=== PATIENT | female | born 1930 | race Caucasian/White ===

== ENCOUNTER 2017-02-01 09:15 | Inpatient (IN) ==
--- NOTE | 2017-02-01 09:54 | Emergency Department Note ---
Disposition Clinical Impression: Urinary retention Back pain Qualifiers: Back pain location: low back pain Chronicity: unspecified Back pain laterality : unspecified Sciatica presence: unspecified whether sciatica present Qualified Code(s): M54.5 - Low back pain Urinary tract infection Qualifiers: Urinary tract infection type: site unspecified Hematuria presence: with hematuria Qualified Code(s): N39.0 - Urinary tract infection, site not specified Disposition: Admitted As Inpatient Condition: Good Time of Disposition: 13:14 Back Pain HPI - General Chief Complaint: ED Back Pain/Injury Stated Complaint: back pain/leg pain Time Seen by Provider: 02/01/17 09:25 Source: patient, EMS Mode of arrival: EMS Limitations: no limitations Nursing Notes Reviewed: Yes Vital Signs Reviewed: Yes - History of Present Illness HPI Narrative: 86-year-old female history of hypertension, arthritis and osteoporosis presents to the ED via EMS with atraumatic back pain. Describes sharp pain in the right lower back some radiation to the right hip. Denies any fall or trauma. States is been ongoing for 6 days worse today. She was pushing a shelf this occurred initially. Standing and walking makes it worse. She does live by herself. She requires assistance holding onto things as she moves around. She reports she has a overactive bladder. Otherwise she denies any fever, leg weakness, fecal incontinence, or saddle anesthesia. History of cholecystectomy. No bowel pain or dysuria. She reports constipation every so often. She takes medications for hypertension but unsure of what medications. Her PCP is Dr. Dali Soto. On examination appears similar to a muscle spasm. She is pointing to the right lumbosacral paraspinal region. Will get a CT of the lumbar spine to evaluate for possible occult fracture. Patient is in agreement with this plan. Review of her past medical history on eCW she has a history of hypertension, arthritis, osteoporosis, lumbar compression fracture, IBS, peripheral neuropathy. - Related Data Home Medications Medication Instructions Recorded Confirmed Albuterol Neb [Proventil Neb] 2.5 mg IH QID 02/01/17 02/01/17 Aspirin 81 mg PO DAILY 02/01/17 02/01/17 Atenolol [Tenormin] 50 mg PO DAILY 02/01/17 02/01/17 Beclomethasone Diprop 80mcg [Qvar 1 puff IH BID 02/01/17 02/01/17 80 mcg] Ibandronate Sodium [Boniva] 150 mg PO QMONTH 02/01/17 02/01/17 Lisinopril [Zestril] 20 mg PO DAILY 02/01/17 02/01/17 diazePAM [Valium] 10 mg PO HS PRN 02/01/17 02/01/17 Allergies Allergy/AdvReac Type Severity Reaction Status Date / Time No Known Allergies Allergy Verified 02/01/17 09:20 All systems ED: reviewed and negative except as stated. Review of Systems: As Per HPI Constitutional: Denies: fever, chills Cardiovascular: Denies: chest pain Respiratory: Denies: dyspnea Gastrointestinal: Denies: abdominal pain, nausea, vomiting Genitourinary: Denies: urgency, dysuria Musculoskeletal: Reports: back pain, arthralgia. Denies: neck pain Integumentary: Denies: rash, abrasion Neurological: Denies: headache Past Medical History - Past Medical History Attestation: Yes The following information was validated with the patient. Source: patient Medical history: Reports: COPD, osteoporosis - Social History Smoking Status: Never smoker Alcohol use: Reports: none Drug use: Reports: none Physical Exam - General Limitations: no limitations General appearance: alert, in no apparent distress - Head Head exam: atraumatic, normocephalic, normal inspection - Chest Chest inspection: Present: normal inspection, symmetric chest wall rise - Respiratory Respiratory exam: Present: normal lung sounds bilaterally. Absent: respiratory distress, wheezes - Cardiovascular Cardiovascular exam: Present: regular rate, normal rhythm, normal heart sounds - Expanded Cardiovascular Exam Peripheral pulses: 2+: posterior tibialis (R), posterior tibialis (L), dorsalis pedis (R), dorsalis pedis (L) - Abdominal Exam Abdominal exam: Present: soft, tenderness, normal bowel sounds. Absent: Non- Tender, distention, guarding, rebound, rigidity, Robertson's sign, Rovsing's sign, tenderness at McBurney's Point, pulsatile mass Abdominal tenderness: Present: RUQ, RLQ, diffuse, mild - Extremities Exam Extremities exam: Present: normal inspection, full ROM, normal capillary refill. Absent: tenderness, pedal edema, calf tenderness - Expanded Lower Extremity Exam Gait: observed and limited by pain - Back Exam Back exam: Present: normal inspection, full ROM, muscle spasm (LUMBAR, RIGHT), paraspinal tenderness, sciatic notch tenderness (R). Absent: tenderness, CVA tenderness (R), CVA tenderness (L), straight leg raise (R), straight leg raise ( L) - Neurological Exam Neurological exam: Present: alert, oriented X3 - Skin Skin exam: Present: warm, dry, intact, normal color. Absent: rash Course - Reevaluation(s) Reevaluation #1: Patient had relief with [place]. CT of the lumbar spine shows no acute abnormality. There is some chronic degenerative changes with the old compression fracture of L2 through L5. Reportedly stable in appearance from prior in 2007. Bedside ultrasound was performed at the bladder which showed roughly 200 mL of fluid. Patient has attempted to void twice with very minimal urine output. Will get a follow-up MRI to evaluate for any spinal injury. Patient is in agreement with this plan. MR lumbar without contrast ordered. Lumbar Spine CT 02/01/17 09:49 IMPRESSION: 1. No acute osseous abnormality of the lumbar spine. 2. Chronic compression fractures of L2 through L5, stable in appearance from 2007. Inferior endplate fracture of T12, new since 2007, but also likely chronic. 3. Degenerative changes of the lumbar spine, resulting in a moderate L3/L4 spinal canal stenoses and moderate neural foraminal stenoses at L4/L5, and L5/S1. D/ / 02/01/2017 11:00:54 Francisco Crane MD / ara Interpreting Provider: Francisco Crane MD Time: 12:07 Reevaluation #2: Informed that MRI will be delayed several hours. Due to symptoms will admit to medicine for observation while awaiting MRI to evaluate for possible cauda equina and possible rehab placement. Impression is low back pain, chronic lumbar compression fracture, urinary retention. Patient is in agreement with this plan. Time: 12:12 Reevaluation #3: Patient denies any dysuria. Urinalysis appears contaminated however there is positive nitrite and leuk esterase. Will treat for UTI with Ceftriaxone. Initially hypertensive possibly more elevated due to acute pain. On recheck without intervention 160/109, reports poor control recently. Denies any chest pain at this time. Patient is stable for discharge to hospital floor. Time: 13:36 - Consultations Consultation #1: Spoke with on-call hospitalist nadia Bo to admit for low back pain, chronic compression lumbar fracture, urinary retention. No further orders at this time Time: 13:14 Vital Signs Temperature 98.3 F 02/01/17 09:17 Pulse Rate 77 02/01/17 09:17 Respiratory Rate 18 02/01/17 09:17 Blood Pressure 182/92 02/01/17 09:17 O2 Sat by Pulse Oximetry 95 02/01/17 09:17 Temperature 98.2 F 02/01/17 14:17 Pulse Rate 85 02/01/17 17:09 Respiratory Rate 18 02/01/17 15:49 Blood Pressure 170/90 02/01/17 17:09 O2 Sat by Pulse Oximetry 93 02/01/17 15:49 Oxygen Delivery Oxygen Delivery Room Air Back Pain/Injury - Medical Records Medical records reviewed: Yes I reviewed the patient's medical records. - Lab Data Result diagrams: 02/01/17 14:46 02/01/17 14:46 Lab Results 02/01/17 Range/Units 11:50 Urine Color Yellow (Yellow) Urine Clarity Turbid A (Clear) Urine pH 6.0 (5.0-8.0) pH Units Ur Specific [place] 1.018 (1.010-1.025) Urine Protein 30 H (Neg-Trace) mg/dL Urine Glucose (UA) Normal (Normal) mg/dL Urine Ketones Negative (Negative) mg/dL Urine Blood Moderate H (Negative) Urine Nitrite Positive A (Negative) Urine Bilirubin Negative (Negative) Urine Urobilinogen Normal (Normal) mg/dL Ur Leukocyte Esterase Large H (Negative) Urine Microscopic WBC TNTC H (0-3) per hpf Ur Squamous Epith Cells Many H (None-Few) per lpf Urine Bacteria Many H (None-Few) per hpf Ur Culture Indicated? YES A (NO)
[2017-02-01] MEDS ORDERED: *HR* HYDROcodone/Acet 5/325 mg TABLET PO ONE (09:55)
--- NOTE | 2017-02-01 10:03 | Emergency Department Note ---
START Narrative - START START: I examined this patient and my medical decision-making was reviewed with the Resident Physician. I agree with the documented findings, disposition and treatment plan as described except to the extent set forth below. 86-year-old female presents with lower back pain over the on the right side. Positive radiculopathy. We will do a CT scan of the lumbar spine to evaluate for any new cough fractures or any new compression fractures.
[2017-02-01 12:02] LABS: Bilirubin,Urine Negative (Negative); Blood,Urine Moderate (Negative); Clarity,Urine Turbid (Clear); Color,Urine Yellow (Yellow); Glucose,Urine (UA) Normal (Normal); Ketones,Urine Negative (Negative); Leukocyte Esterase,Urine Large (Negative); Nitrite,Urine Positive (Negative); Protein,Urine 30 mg/dL (Neg-Trace); Specific Gravity,Urine 1.018 (1.010-1.025); Urobilinogen,Urine Normal (Normal)
[2017-02-01 12:04] LABS: Bacteria,Urine Many per hpf (None-Few); Squamous Epithelial Cell,Urine Many per lpf (None-Few); WBC,Urine TNTC per hpf (0-3)
[2017-02-01] MEDS ORDERED: diazePAM 10 MG TABLET PO PRN (13:56)
[2017-02-01] MEDS ORDERED: NON-FORMULARY MEDICATION 1 EACH EACH (Ibandronate Sodium [Boniva] 150 MG) PO SCH (14:00)
[2017-02-01] MEDS ORDERED: hydrALAZINE 10 MG TABLET PO PRN (14:10)
[2017-02-01] MEDS ORDERED: Acetaminophen 325 MG TABLET PO PRN (14:24)
[2017-02-01] MEDS ORDERED: Ondansetron 4 MG/2 ML VIAL IVP PRN (14:24)
[2017-02-01] MEDS ORDERED: *HR* Morphine 2 MG/ML SYRINGE IVP PRN (14:24)
[2017-02-01] MEDS ORDERED: Naloxone 0.4 MG/ML INJ IVP PRN (14:24)
--- NOTE | 2017-02-01 14:48 | Internal Med History&Physical ---
<Wali Triana - Last Filed: 02/01/17 15:15> Date of Encounter: 02/01/17 Time of Encounter: 13:30 Assessment and Plan (1) Back pain Current visit: Yes Status: Acute Patient presents with severe back pain from moving a metal shelf six days ago when she experienced severe and stabbing pain in the back which has become progressively worse. She denies any fall, trauma, or syncopal episode. She states that the pain is mainly right-sided in the back and radiates down her leg when she attempts to stand or walk. CT of the spine today shows no acute osseous abnormalities lumbar spine, but there are compression fractures of L2- L5 which are stable in appearance from 2007. Inferior endplate fracture of T12 is new since 2007. There are also degenerative changes of the lumbar spine resulting in moderate L3/L4 spinal canal stenoses and moderate neural foraminal stenoses at L4/L5 as well as L5/S1. Consult to [facility] ordered with Dr. Summers. MRI of the spine ordered in the ED. Consult to ordered for possible placement of patient post-discharge. Patient placed as falls/safety precautions due to severe pain. Will administer stair-step pain medications for pain management. Qualifiers: Back pain location: low back pain Chronicity: unspecified Back pain laterality: unspecified Sciatica presence: unspecified whether sciatica present Qualified Code(s): M54.5 - Low back pain (2) Urinary tract infection Current visit: Yes Status: Acute Patient presents with initial U/A which is indicative for urine culture which was ordered in the ED. IV ceftriaxone administered in the ED and will be continued at 2,000 mg daily IVPB. Follow-up labs ordered to monitor patient's WBCs. Qualifiers: Urinary tract infection type: site unspecified Hematuria presence: with hematuria Qualified Code(s): N39.0 - Urinary tract infection, site not specified; R31.9 - Hematuria, unspecified (3) At high risk for falls Current visit: Yes Status: Acute Patient presents with acute risk for falls based on current severe back pain and difficulty in ambulating. Patient placed as falls precautions/up with assist /bed rest with bedside commode with assist only. (4) HTN (hypertension) Current visit: Yes Status: Acute Patient presents with history of chronic hypertension but is currently experiencing acute hypertension with BP of 162/122 most likely related to current pain. Patient reports she was unable to take any of her medications today due to severe pain with walking. Hydralazine IVP 10 mg every 6 ordered if systolic BP greater than 170 and/or diastolic BP greater than 100. We will continue patient's lisinopril and atenolol. Patient and vital signs to be monitored and patient placed on continuous telemetry. Qualifiers: Hypertension type: essential hypertension Qualified Code(s): I10 - Essential (primary) hypertension (5) COPD (chronic obstructive pulmonary disease) Current visit: Yes Status: Chronic Patient presents with history of chronic COPD. patient reports she has never smoked, but was exposed to secondhand smoke via her smoking. DuoNebs ordered every 6 and patient placed on supplemental O2 with SPO2 monitoring. Qualifiers: COPD type: unspecified COPD Qualified Code(s): J44.9 - Chronic obstructive pulmonary disease, unspecified (6) Arthritis Current visit: Yes Status: Chronic Patient presents with history of chronic arthritis. Will administer stair-step pain medication for pain management. (7) Osteoporosis Current visit: Yes Status: Chronic Patient presents with history of chronic osteoporosis. Patient's CT of the spine today shows chronic compression fractures and endplate fractures as well as degenerative changes of the lumbar spine. Will continue patient's Boniva. Qualifiers: Osteoporosis type: age-related Presence of current pathological fracture: with current pathological fracture Encounter type: initial encounter Qualified Code(s): M80.00XA - Age-related osteoporosis with current pathological fracture, unspecified site, initial encounter for fracture (8) DVT prophylaxis Current visit: Yes Status: Acute Patient placed on DVT prophylaxis due to current admission protocol and bedrest status. Heparin 5000 units SQ every 8 ordered. Internal Medicine - H&P: HPI Chief complaint: Severe Back Pain Admitted From: Emergency Dept Plans for Post Hospital Care: Home History of present illness: Mrs. Mitchell is a 86 year old female who presents from the ED with chief complaint of severe back pain. Patient states she was in the basement moving a metal shelf six days ago when she experienced severe and stabbing pain in the back which has become progressively worse. She denies any fall, trauma, or syncopal episode. She states that the pain is mainly right-sided in the back and radiates down her leg when she attempts to stand or walk. CT of the spine today shows no acute osseous abnormalities lumbar spine, but there are compression fractures of L2-L5 which are stable in appearance from 2008. Inferior endplate fracture of T12 is new since 2008. There are also degenerative changes of the lumbar spine resulting in moderate L3/L4 spinal canal stenoses and moderate neural foraminal stenoses at L4/L5 as well as L5/S1. Patient's initial UA was indicative of urine cultures and patient was started on IV ceftriaxone in the ED. Patient denies difficulty in urination except when she is constipated, which she says currently she has. Patient is at moderate risk for further morbidity will be placed as an inpatient consult [facility] placed as well as social work consult to explore possible placement for patient post discharge. Will consider PT/OT consult Dr. Summers's recommendations. The patient's current and severe back pain, she will be placed as falls precautions/ up with assist/bedrest with bedside commode with assist only. Patient's BP is currently elevated at 162/122 and hydralazine 10 mg Q6 PRN ordered for systolic BP >170 and/or diastolic BP >100. Patient to be monitored closely for pain and will receive stair-step pain medications for pain management. Time spent with patient >40 minutes. Past Med Surg Social Fam HX - Past Medical History Source: patient Medical history: COPD, osteoporosis - Past Surgical History Surgical History: cholecystectomy, other (Tubal ligation, Ovarian tumor removal) - Social History Smoking Status: Never smoker Alcohol use: none Drug use: none Current living situation: Home Activity Level: Independent ambulation, Uses cane/walker Recent Out of Country Travel Within the Last 8 Weeks: No Exposure or Possible Exposure to Illness During Travel: No - Family History Father Family Member Ethnicity: Non- Living Status: Age at : 77 Cause of : [place] Hx Family Cardiac Disorders: Yes ([place], HD, HTN, HLD) Mother Family Member Ethnicity: Non- Living Status: Cause of : Dementia-related complications Hx Family Endocrine Disorder: Yes (DM) Hx Family Neurologic Disorders: Yes (Dementia) Brother Family Member Ethnicity: Non- Living Status: Cause of : Cancer Hx Family Cancer: Yes Sister Family Member Ethnicity: Non- Living Status: Age at : 80 Cause of : Alzheimer's disease Hx Family Neurologic Disorders: Yes (Alzheimer's disease) Internal Medicine - H&P: Meds Albuterol Neb [Proventil Neb] 2.5 mg IH QID 02/01/17 [History] Aspirin 81 mg PO DAILY 02/01/17 [History] Atenolol [Tenormin] 50 mg PO DAILY 02/01/17 [History] Beclomethasone Diprop 80mcg [Qvar 80 mcg] 1 puff IH BID 02/01/17 [History] Ibandronate Sodium [Boniva] 150 mg PO QMONTH 02/01/17 [History] Lisinopril [Zestril] 20 mg PO DAILY 02/01/17 [History] diazePAM [Valium] 10 mg PO HS PRN 02/01/17 [History] Allergies No Known Allergies Allergy (Verified 02/01/17 09:20) All Systems PM: A 10-system review of systems was performed and is negative for pertinent findings except as documented above in the HPI. - Constitutional Constitutional: no chills, no fever(s), no night sweats - EENT Eyes: no change in vision, no discharge, no pain, no photophobia Ears: no ear discharge, no ear pain, no tinnitus Nose, mouth and throat: no dysphagia, no nasal discharge, no neck pain, no sore throat - Breasts Breasts: as per HPI - Cardiovascular Cardiovascular ROS IM: no chest pain, no diaphoresis, no dyspnea, no lightheadedness, no palpitations, no syncope - Respiratory Respiratory: as per HPI, dyspnea, no cough, no wheezing, no excessive phlegm production - Gastrointestinal Gastrointestinal: no abdominal pain, no diarrhea, no hematemesis, no hematochezia, no melena, no nausea, no vomiting - Genitourinary Genitourinary: no change in urinary stream, no dysuria, no flank pain, no hematuria Menstruation: as per HPI - Musculoskeletal Musculoskeletal ROS IM: as per HPI, back pain, limited range of motion, no numbness, no tingling - Integumentary Integumentary IM: no rash, no unusual bruising - Neurological Neurological ROS: no confusion, no convulsions, no focal weakness, no numbness, no tingling, no tremor(s) - Psychiatric Psychiatric: as per HPI - Endocrine Endocrine IM: as per HPI - Hematologic/Lymphatic Hematologic/Lymphatic: no easy bruising - Allergic/Immunologic Allergic/Immunologic: as per HPI - Constitutional Vitals: Temp Pulse Resp BP Pulse Ox 98.2 F 72 15 172/99 92 02/01/17 14:17 02/01/17 14:17 02/01/17 14:17 02/01/17 14:17 02/01/17 14:17 General appearance: Present: cooperative, mild distress, A&O X 3, pleasant, obese, answers questions appropriately - Head Head exam: Present: atraumatic, normocephalic - Eye Eye exam: Present: PERRL, conjuntiva pink, sclera anicteric Pupils: Present: PERRL - ENT ENT exam: Present: normal exam, normal external ear exam - Neck Neck exam general surgery: Present: normal inspection, supple, trachea midline. Absent: lymphadenopathy - Respiratory Respiratory exam: Present: CTAB. Absent: accessory muscle use, rales, rhonchi, wheezes - Cardiovascular Cardiovascular exam: Present: RRR, +S1, +S2. Absent: diastolic murmur, gallop, rubs, systolic murmur - GI/Abdominal GI/Abdominal exam: Present: normal bowel sounds, soft, no peritoneal signs. Absent: distended, tenderness - Rectal Rectal exam: Present: deferred - Additional comments: Gu exam deferred. - Extremities Exam Extremities exam: Present: warm, radial pulses palpable and symmetrical. Absent : calf tenderness, cyanotic, pedal edema - Back Exam Back exam: Present: CVA tenderness (R), vertebral tenderness - Neurological Exam Neurological exam: Present: CN II-XII intact, oriented X3, no focal deficits. Absent: pronater drift, facial droop, speech deficit - Psychiatric Psychiatric exam: Present: normal affect, normal mood - Skin Skin exam: Present: dry, intact Internal Med - H&P Results - Labs CBC & Chem 7: 02/01/17 14:46 02/01/17 14:46 - Diagnostic Studies Other Images Additional comments: Impressions Lumbar Spine CT 02/01/17 09:49 IMPRESSION: 1. No acute osseous abnormality of the lumbar spine. 2. Chronic compression fractures of L2 through L5, stable in appearance from 2007. Inferior endplate fracture of T12, new since 2007, but also likely chronic. 3. Degenerative changes of the lumbar spine, resulting in a moderate L3/L4 spinal canal stenoses and moderate neural foraminal stenoses at L4/L5, and L5/S1. D/ / 02/01/2017 11:00:54 Francisco Crane MD / ara Interpreting Provider: Francisco Crane MD <Tabatha Nails - Last Filed: 02/01/17 18:48> Date of Encounter: 02/01/17 Internal Medicine - H&P: HPI History of present illness: Ms. Mitchell is a 86 year old female All Systems PM: A 10-system review of systems was performed and is negative for pertinent findings except as documented above in the HPI. - Constitutional Vitals: Temp Pulse Resp BP Pulse Ox 98.2 F 85 18 170/90 93 02/01/17 14:17 02/01/17 17:09 02/01/17 15:49 02/01/17 17:09 02/01/17 15:49 Internal Med - H&P Results - Labs CBC & Chem 7: 02/01/17 14:46 02/01/17 14:46 Labs: Short CBC 02/01/17 Range/Units 14:46 WBC 8.6 (4.3-11.1) K/mcL Hgb 15.3 (11.5-15.4) g/dL Hct 46.0 H (35.3-44.9) % Plt Count 195 (140-400) K/mcL Neutrophils # 5.2 (1.6-8.9) K/mcL BMP 02/01/17 14:46 Sodium 140 Potassium 3.5 Chloride 106 Carbon Dioxide 27 BUN 13 Creatinine 0.88 Glucose 123 H Calcium 9.5 Liver Function 02/01/17 Range/Units 14:46 Total Bilirubin 0.6 (0.2-1.2) mg/dL AST 25 (5-34) Units/L ALT 17 (0-55) Units/L Alkaline Phosphatase 73 (38-126) Units/L Albumin 3.5 (3.5-5.0) g/dL - Attending Attestation I examined this patient and my medical decision-making was reviewed with the SHEAR TENDER. I agree with the documented findings, disposition and treatment plan as described .
[2017-02-01 14:54] LABS: Basophils % 0.3 %; Eosinophils # 0.4 K/mcL (0.0-0.6); Eosinophils % 4.4 %; Hemoglobin 15.3 g/dL (11.5-15.4); Immature Granulocytes % 0.7 % (0-4); Lymphocytes # 2.1 K/mcL (0.6-4.6); Lymphocytes % 24.8 %; Mean Corpuscular HGB Conc 33.3 g/dL (31.6-35.5); Mean Corpuscular Volume 90.2 fL (83.0-100.0); Mean Platelet Volume 9.8 fL (9.4-12.4); Monocytes # 0.8 K/mcL (0.0-1.3); Monocytes % 9.4 %; Neutrophils # 5.2 K/mcL (1.6-8.9); Platelet Count 195 K/mcL (140-400); Red Cell Distribution Width 13.2 % (11.5-14.5); Segmented Neutrophils % 60.4 %
[2017-02-01 15:11] LABS: Alanine Aminotransferase 17 Units/L (0-55); Albumin 3.5 g/dL (3.5-5.0); Albumin/Globulin Ratio 0.9 (1.1-2.2); Alkaline Phosphatase 73 Units/L (38-126); Aspartate Amino Transferase 25 Units/L (5-34); BUN/Creatinine Ratio 15 (6-26); Bilirubin,Total 0.6 mg/dL (0.2-1.2); Blood Urea Nitrogen 13 mg/dL (7-20); Calcium 9.5 mg/dL (8.6-10.8); Carbon Dioxide 27 mEq/L (19-29); Chloride 106 mEq/L (98-109); Globulin 3.7 g/dL (2.4-3.5); Glucose 123 mg/dL (70-99); Osmolality,Calculated 291 (280-300); Potassium 3.5 mEq/L (3.5-4.5); Sodium 140 mEq/L (136-145); Total Protein 7.2 g/dL (6.0-8.3); eGFR For African Americans > 60 (> 60); eGFR For Non-African Americans > 60 (> 60)
[2017-02-01] MEDS: *HR* Heparin 5,000 UNIT/ML VIAL SQ SCH ×2 (15:36→23:22)
[2017-02-01] MEDS: hydrALAZINE 10 MG TABLET PO PRN (15:36)
[2017-02-01] MEDS: Pantoprazole 40 MG VIAL IVP SCH (15:36)
[2017-02-01] MEDS: Ipratropium/Albuterol Neb 3 ML IH SCH ×2 (15:46→22:32)
[2017-02-01] MEDS ORDERED: Lisinopril 20 MG TABLET PO ONE (17:30)
--- NOTE | 2017-02-01 18:01 | Pain Management History & Phys ---
Date of Encounter: 02/01/17 Time of Encounter: 17:59 Assessment and Plan (1) Sacroiliitis Current Visit: Yes Status: Acute The assessment and plan as outlined above was discussed with the patient and/or family members who expressed understanding and agreement. All questions were answered. Recommend a short course of IV steroids (1 or two days at most). Oral opioids for pain control. I can then f/u with as an outpatient to discuss further management such as SI joint injection if needed. May also consider PT/OT eval while she is here. (2) Lumbar compression fracture Current Visit: Yes Status: Chronic The assessment and plan as outlined above was discussed with the patient and/or family members who expressed understanding and agreement. All questions were answered. CT reviewed. These are old. Kyphoplasty not indicated. These are not where her pain is actually located. History of Present Illness Chief complaint: Back pain HPI: Ms. Mitchell is a 86 year old female 6 days ago was moving a cart and felt sharp twinge in the right low back. "Like a pitchfork". Worse with walking. Relieved with rest, pain medicine. Reports no new weakness. Was unable to maintain ADLS. Brought in this morning via ED. CT scan shows old VCF. Past Med Surg Social Fam HX - Past Medical History Medical history: COPD, osteoporosis Psychiatric history: no psych history - Past Surgical History Surgical History: cholecystectomy, other (Tubal ligation, Ovarian tumor removal) - Social History Smoking Status: 2nd Hand Smoke Exposure Smokeless Tobacco Status: No Alcohol use: none Drug use: none Current living situation: Home - Independent Activity Level: Independent ambulation - Family History Mother History Unknown: Yes Father Living Status: Age at : 77 Cause of : [place] Brother Family Member Ethnicity: Non- Living Status: Cause of : Cancer Hx Family Cancer: Yes Sister Family Member Ethnicity: Non- Living Status: Age at : 80 Cause of : Alzheimer's disease Hx Family Neurologic Disorders: Yes (Alzheimer's disease) Medications and Allergies Albuterol Neb [Proventil Neb] 2.5 mg IH QID 02/01/17 [History] Aspirin 81 mg PO DAILY 02/01/17 [History] Atenolol [Tenormin] 50 mg PO DAILY 02/01/17 [History] Beclomethasone Diprop 80mcg [Qvar 80 mcg] 1 puff IH BID 02/01/17 [History] Ibandronate Sodium [Boniva] 150 mg PO QMONTH 02/01/17 [History] Lisinopril [Zestril] 20 mg PO DAILY 02/01/17 [History] diazePAM [Valium] 10 mg PO HS PRN 02/01/17 [History] Allergies No Known Allergies Allergy (Verified 02/01/17 09:20) Review of Systems - Constitutional Constitutional ROS IM: no photophobia, no phonophobia, no daytime sleepiness, no fever(s), no stops breathing during sleep - Cardiovascular Cardiovascular ROS: no chest pain, no leg edema, no lightheadedness - Respiratory Respiratory: no pain on inspiration, no pain with cough - Gastrointestinal Gastrointestinal: no abdominal pain, no constipation, no diarrhea, no heartburn - Genitourinary Genitourinary ROS: no difficulty urinating, no flank pain, no urinary hesitancy - Musculoskeletal Musculoskeletal ROS: as per HPI, abnormal gait - Integumentary Integumentary: no erythema, no lesions, no swelling - Neurological Neurological ROS: no abnormal gait, no behavioral changes, no focal weakness, no radicular pain - Psychiatric Psychiatric general: no anxiety, no confusion, no depression - Hematologic/Lymphatic Hematologic/Lymphatic pediatric: no easy bleeding, no easy bruising Physical Exam Initial Vital Signs Temp Pulse Resp BP Pulse Ox 98.3 F 77 18 182/92 95 02/01/17 09:17 02/01/17 09:17 02/01/17 09:17 02/01/17 09:17 02/01/17 09:17 - General physical appearance General physical appearance: awake & oriented, no distress, moderate pain - Eyes Eye exam: normal ocular movement - Neck trachea midline - Respiratory normal expansion, normal respiratory effort - Neurologic other (Moving all extremities equally. ) - Musculoskeletal Musculoskeletal: other (Pain over right SI joint. Dinesh sign positive right. ) - Psychiatric Psychiatric: oriented to time, oriented to person, oriented to place Results - Labs 02/01/17 14:46 02/01/17 14:46 Abnormal lab results RBC 5.10 M/mcL (3.82-4.97) H 02/01/17 14:46 Hct 46.0 % (35.3-44.9) H 02/01/17 14:46 Glucose 123 mg/dL (70-99) H 02/01/17 14:46 Globulin 3.7 g/dL (2.4-3.5) H 02/01/17 14:46 Albumin/Globulin Ratio 0.9 (1.1-2.2) L 02/01/17 14:46 Urine Clarity Turbid (Clear) A 02/01/17 11:50 Urine Protein 30 mg/dL (Neg-Trace) H 02/01/17 11:50 Urine Blood Moderate (Negative) H 02/01/17 11:50 Urine Nitrite Positive (Negative) A 02/01/17 11:50 Ur Leukocyte Esterase Large (Negative) H 02/01/17 11:50 Urine Microscopic WBC TNTC per hpf (0-3) H 02/01/17 11:50 Ur Squamous Epith Cells Many per lpf (None-Few) H 02/01/17 11:50 Urine Bacteria Many per hpf (None-Few) H 02/01/17 11:50 Ur Culture Indicated? YES (NO) A 02/01/17 11:50 Diabetes panel 02/01/17 Range/Units 14:46 Sodium 140 (136-145) mEq/L Potassium 3.5 (3.5-4.5) mEq/L Chloride 106 (98-109) mEq/L Carbon Dioxide 27 (19-29) mEq/L BUN 13 (7-20) mg/dL Creatinine 0.88 (0.57-1.11) mg/dL Glucose 123 H (70-99) mg/dL Calcium 9.5 (8.6-10.8) mg/dL AST 25 (5-34) Units/L ALT 17 (0-55) Units/L Alkaline Phosphatase 73 (38-126) Units/L Albumin 3.5 (3.5-5.0) g/dL Calcium panel 02/01/17 Range/Units 14:46 Calcium 9.5 (8.6-10.8) mg/dL Albumin 3.5 (3.5-5.0) g/dL Pituitary panel 02/01/17 Range/Units 14:46 Sodium 140 (136-145) mEq/L Potassium 3.5 (3.5-4.5) mEq/L Chloride 106 (98-109) mEq/L Carbon Dioxide 27 (19-29) mEq/L BUN 13 (7-20) mg/dL Creatinine 0.88 (0.57-1.11) mg/dL Glucose 123 H (70-99) mg/dL Calcium 9.5 (8.6-10.8) mg/dL Adrenal panel 02/01/17 Range/Units 14:46 Sodium 140 (136-145) mEq/L Potassium 3.5 (3.5-4.5) mEq/L Chloride 106 (98-109) mEq/L Carbon Dioxide 27 (19-29) mEq/L BUN 13 (7-20) mg/dL Creatinine 0.88 (0.57-1.11) mg/dL Glucose 123 H (70-99) mg/dL Calcium 9.5 (8.6-10.8) mg/dL Total Bilirubin 0.6 (0.2-1.2) mg/dL AST 25 (5-34) Units/L ALT 17 (0-55) Units/L Alkaline Phosphatase 73 (38-126) Units/L Albumin 3.5 (3.5-5.0) g/dL All other labs normal. - Imaging Additional studies: Reviewed CT scan - Old VCF. No acuity
[2017-02-01] MEDS: *HR* HYDROcodone/Acet 5/325 mg TABLET PO PRN ×2 (19:28→23:27)
[2017-02-01] MEDS: predniSONE 20 MG TABLET PO SCH (21:26)
[2017-02-01] MEDS: *HR* OxyCODONE/APAP 10/325 TABLET PO PRN (21:26)
[2017-02-01] MEDS: diazePAM 10 MG TABLET PO PRN (23:22)
[2017-02-02] MEDS: Ipratropium/Albuterol Neb 3 ML IH SCH ×4 (04:11→20:59)
[2017-02-02 07:31] LABS: Basophils % 0.3 %; Eosinophils % 0.1 %; Hematocrit 45.8 % (35.3-44.9); Hemoglobin 15.2 g/dL (11.5-15.4); Immature Granulocytes % 0.5 % (0-4); Lymphocytes # 1.1 K/mcL (0.6-4.6); Lymphocytes % 13.5 %; Mean Corpuscular HGB Conc 33.2 g/dL (31.6-35.5); Mean Corpuscular Hemoglobin 30.3 pg (28.0-33.3); Mean Corpuscular Volume 91.4 fL (83.0-100.0); Mean Platelet Volume 10.2 fL (9.4-12.4); Monocytes # 0.3 K/mcL (0.0-1.3); Monocytes % 4.4 %; Neutrophils # 6.3 K/mcL (1.6-8.9); Platelet Count 200 K/mcL (140-400); Red Blood Count 5.01 M/mcL (3.82-4.97); Red Cell Distribution Width 13.5 % (11.5-14.5); Segmented Neutrophils % 81.2 %
[2017-02-02 07:54] LABS: BUN/Creatinine Ratio 15 (6-26); Blood Urea Nitrogen 13 mg/dL (7-20); Calcium 9.6 mg/dL (8.6-10.8); Carbon Dioxide 26 mEq/L (19-29); Chloride 108 mEq/L (98-109); Chol/HDL Ratio 5.3 (0-4.9); Cholesterol 175 mg/dL (< 200); Glucose 142 mg/dL (70-99); HDL Cholesterol 33 mg/dL (40-59); LDL Cholesterol,Calculated 123 mg/dL (0-99); Magnesium 2.2 mg/dL (1.6-2.6); Osmolality,Calculated 297 (280-300); Potassium 4.4 mEq/L (3.5-4.5); Sodium 142 mEq/L (136-145); Triglycerides 96 mg/dL (< 150); eGFR For African Americans > 60 (> 60); eGFR For Non-African Americans > 60 (> 60)
[2017-02-02] MEDS: Lisinopril 20 MG TABLET PO SCH (08:30)
[2017-02-02] MEDS: Aspirin 81 MG TAB.CHEW PO SCH (08:30)
[2017-02-02] MEDS: predniSONE 20 MG TABLET PO SCH (08:30)
[2017-02-02] MEDS: Pantoprazole 40 MG VIAL IVP SCH (08:31)
[2017-02-02] MEDS: *HR* Heparin 5,000 UNIT/ML VIAL SQ SCH ×3 (08:31→23:19)
[2017-02-02] MEDS: *HR* OxyCODONE/APAP 10/325 TABLET PO PRN ×2 (08:31→17:30)
--- NOTE | 2017-02-02 10:13 | Internal Med Progress Note ---
<Ashwin Hollingsworth R - Last Filed: 02/02/17 12:54> Date of Encounter: 02/02/17 Time of Encounter: 09:13 - Assessment and plan (1) Sacroiliitis Current Visit: Yes Status: Acute Assessment and plan: Reports localized symptoms now over Right SI joint Continue stair step pain management - pain controlled now - 2 [place] and 1 Percocet yesterday, 1 Percocet today 2 days of prednisone 20mg PT/OT evaluation SW consult to evaluation d/c possibilities (2) Lumbar compression fracture Current Visit: Yes Status: Chronic Assessment and plan: Acute/subacute T12. Stable compression fractures L2-L5 No kyphoplasty recommended Pain control. Continue Boniva upon d/c Qualifiers: Encounter type: initial encounter Lumbar vertebra fracture level: L1 Fracture type: closed Qualified Code(s): S32.010A - Wedge compression fracture of first lumbar vertebra, initial encounter for closed fracture (3) Urinary tract infection Current Visit: Yes Status: Acute Assessment and plan: On Ceftriaxone. Urine culture pending - preliminary results show gram negative rods. Afebrile, no elevated WBC. Qualifiers: Urinary tract infection type: site unspecified Hematuria presence: with hematuria Qualified Code(s): N39.0 - Urinary tract infection, site not specified (4) At high risk for falls Current Visit: Yes Status: Acute Assessment and plan: Fall precautions (5) HTN (hypertension) Current Visit: Yes Status: Acute Assessment and plan: Normotensive now - continue atenolol, lisinopril. Hydralazine prn Acutely elevated on admission Qualifiers: Hypertension type: essential hypertension Qualified Code(s): I10 - Essential (primary) hypertension (6) COPD (chronic obstructive pulmonary disease) Current Visit: Yes Status: Chronic Assessment and plan: Lungs clear on exam. [place] q6h Qualifiers: COPD type: unspecified COPD Qualified Code(s): J44.9 - Chronic obstructive pulmonary disease, unspecified (7) DVT prophylaxis Current Visit: Yes Status: Acute Assessment and plan: Subcutaneous heparin - Subjective Interval history: Patient reports her pain is well controlled (2/10) and is located on the right lower back. She points near the right SI joint and describes it as if "someone were stabbing" her there. Worse with movement and just a dull ache now while resting. Numbness and tingling are present only at night. She denies other complaints, denies dizziness, light-headedness, chest pain, dyspnea, cough, N/V/ D, dysuria or leg edema. - Constitutional Vitals: Temp Pulse Resp BP Pulse Ox 97.6 F 74 16 132/87 95 02/02/17 07:27 02/02/17 07:27 02/02/17 07:27 02/02/17 07:27 02/02/17 07:27 General appearance: Present: cooperative, mild distress, A&O X 3, pleasant, obese, answers questions appropriately - Head Head exam: Present: atraumatic, normocephalic - Eye Eye exam: Present: sclera anicteric - ENT ENT exam: Present: mucous membranes moist - Respiratory Respiratory exam: Present: CTAB. Absent: rales, rhonchi, wheezes - Cardiovascular Cardiovascular exam: Present: RRR, +S1, +S2 - GI/Abdominal GI/Abdominal exam: Present: normal bowel sounds, soft. Absent: distended, rigid , tenderness - Extremities Exam Extremities exam: Present: warm, radial pulses palpable and symmetrical. Absent : calf tenderness, pedal edema, tenderness - Neurological Exam Neurological exam: Present: alert, CN II-XII intact, oriented X3, no focal deficits Internal Medicine: Result - Labs CBC & Chem 7: 02/02/17 07:08 02/02/17 07:08 Labs: Short CBC 02/01/17 02/02/17 Range/Units 14:46 07:08 WBC 8.6 7.8 (4.3-11.1) K/mcL Hgb 15.3 15.2 (11.5-15.4) g/dL Hct 46.0 H 45.8 H (35.3-44.9) % Plt Count 195 200 (140-400) K/mcL Neutrophils # 5.2 6.3 (1.6-8.9) K/mcL BMP 02/01/17 02/02/17 14:46 07:08 Sodium 140 142 Potassium 3.5 4.4 Chloride 106 108 Carbon Dioxide 27 26 BUN 13 13 Creatinine 0.88 0.88 Glucose 123 H 142 H Calcium 9.5 9.6 Liver Function 02/01/17 Range/Units 14:46 Total Bilirubin 0.6 (0.2-1.2) mg/dL AST 25 (5-34) Units/L ALT 17 (0-55) Units/L Alkaline Phosphatase 73 (38-126) Units/L Albumin 3.5 (3.5-5.0) g/dL Consult Discharge Plan - Plan Referrals: Dali Soto DO [Primary Care Provider] - 02/07/17 1:30 pm Son Romano DO [Partnered Physician] - 02/15/17 3:30 pm <Surinder Camarillo - Last Filed: 02/02/17 18:21> Date of Encounter: 02/02/17 - Assessment and plan (1) Sacroiliitis Current Visit: Yes Status: Acute (2) Back pain Current Visit: Yes Status: Acute Qualifiers: Back pain location: low back pain Chronicity: unspecified Back pain laterality: unspecified Sciatica presence: unspecified whether sciatica present Qualified Code(s): M54.5 - Low back pain (3) HTN (hypertension) Current Visit: Yes Status: Acute Qualifiers: Hypertension type: essential hypertension Qualified Code(s): I10 - Essential (primary) hypertension (4) Urinary tract infection Current Visit: Yes Status: Acute Qualifiers: Urinary tract infection type: acute cystitis Hematuria presence: with hematuria Qualified Code(s): N30.01 - Acute cystitis with hematuria (5) Urinary retention Current Visit: Yes Status: Acute (6) COPD (chronic obstructive pulmonary disease) Current Visit: Yes Status: Chronic Qualifiers: COPD type: unspecified COPD Qualified Code(s): J44.9 - Chronic obstructive pulmonary disease, unspecified (7) Osteoporosis Current Visit: Yes Status: Chronic Qualifiers: Osteoporosis type: age-related Presence of current pathological fracture: with current pathological fracture Encounter type: subsequent encounter Fracture healing: with routine healing Qualified Code(s): M80.00XD - Age- related osteoporosis with current pathological fracture, unspecified site, subsequent encounter for fracture with routine healing (8) Arthritis Current Visit: Yes Status: Chronic - Constitutional Vitals: Temp Pulse Resp BP Pulse Ox 98.0 F 76 16 148/82 95 02/02/17 12:41 02/02/17 12:41 02/02/17 16:15 02/02/17 12:41 02/02/17 16:15 Internal Medicine: Result - Labs CBC & Chem 7: 02/02/17 07:08 02/02/17 07:08 Labs: Short CBC 02/02/17 Range/Units 07:08 WBC 7.8 (4.3-11.1) K/mcL Hgb 15.2 (11.5-15.4) g/dL Hct 45.8 H (35.3-44.9) % Plt Count 200 (140-400) K/mcL Neutrophils # 6.3 (1.6-8.9) K/mcL BMP 02/02/17 07:08 Sodium 142 Potassium 4.4 Chloride 108 Carbon Dioxide 26 BUN 13 Creatinine 0.88 Glucose 142 H Calcium 9.6 - Attending Attestation I examined this patient and my medical decision-making was reviewed with the Resident Physician on 02/02/17. I agree with the documented findings, disposition and treatment plan as described except to the extent set forth below. Ms. Mitchell is currenty admitted for acute low back pain/sacroilitis. She remains moderate risk due to persistent pain and concern for vertebral fracture. Ms Mitchell is up and walking with therapy. Pain is fairly controlled though still present. MRI done this AM. Awaiting spine surgery eval. No fever or chills. Urine with gram neg [place]. Exam Alert. Comfortable Mucus membranes moist Heart reg No wheeze No edema I/P 1. Sacroilitis 2. Intractable back pain Further diagnoses and plan as above.
[2017-02-02] MEDS: *HR* HYDROcodone/Acet 5/325 mg TABLET PO PRN (12:30)
--- NOTE | 2017-02-02 15:29 | Electrocardiograph Report ---
[address] [place] [address] Test Date: 2017-02-01 Pat Name: Jing Mitchell Department: 113 Room: 3B12 Gender: F Supervisor Beet End: DORIE : 1930 Requested By: Wali Triana Order Number: [id number] Reading MD: Aneudy Aviles Measurements Intervals [place] Rate: 68 P: 62 NE: 167 QRS: -7 QRSD: 107 T: 39 QT: 426 QTc: 443 Interpretive Statements SINUS RHYTHM WITH OCCASIONAL VENTRICULAR PREMATURE COMPLEXES Electronically Signed On 02-02-2017 15:27:55 EDT by Aneudy Aviles
[2017-02-02] MEDS: diazePAM 10 MG TABLET PO PRN (22:26)
[2017-02-03] MEDS: *HR* OxyCODONE/APAP 10/325 TABLET PO PRN ×2 (02:52→16:55)
[2017-02-03] MEDS: Ipratropium/Albuterol Neb 3 ML IH SCH ×4 (04:49→20:54)
[2017-02-03 07:36] LABS: BUN/Creatinine Ratio 20 (6-26); Blood Urea Nitrogen 17 mg/dL (7-20); Calcium 9.5 mg/dL (8.6-10.8); Carbon Dioxide 26 mEq/L (19-29); Chloride 108 mEq/L (98-109); Glucose 111 mg/dL (70-99); Osmolality,Calculated 296 (280-300); Potassium 3.7 mEq/L (3.5-4.5); Sodium 142 mEq/L (136-145); eGFR For African Americans > 60 (> 60); eGFR For Non-African Americans > 60 (> 60)
[2017-02-03 08:09] LABS: Hematocrit 43.1 % (35.3-44.9); Hemoglobin 14.4 g/dL (11.5-15.4); Mean Corpuscular HGB Conc 33.4 g/dL (31.6-35.5); Mean Corpuscular Hemoglobin 31.3 pg (28.0-33.3); Mean Corpuscular Volume 93.7 fL (83.0-100.0); Mean Platelet Volume 11.4 fL (9.4-12.4); Platelet Count 197 K/mcL (140-400); Red Cell Distribution Width 13.9 % (11.5-14.5)
[2017-02-03] MEDS: predniSONE 20 MG TABLET PO SCH (10:09)
[2017-02-03] MEDS: Aspirin 81 MG TAB.CHEW PO SCH (10:09)
[2017-02-03] MEDS: *HR* HYDROcodone/Acet 5/325 mg TABLET PO PRN ×2 (10:09→20:07)
[2017-02-03] MEDS: Lisinopril 20 MG TABLET PO SCH (10:09)
[2017-02-03] MEDS: *HR* Heparin 5,000 UNIT/ML VIAL SQ SCH ×3 (10:10→23:59)
[2017-02-03] MEDS: Pantoprazole 40 MG VIAL IVP SCH (10:10)
--- NOTE | 2017-02-03 10:18 | Internal Med Progress Note ---
<Ashwin Hollingsworth Marci - Last Filed: 02/03/17 12:33> Date of Encounter: 02/03/17 Time of Encounter: 09:42 - Assessment and plan (1) Sacroiliitis Current Visit: Yes Status: Acute Assessment and plan: Reports localized symptoms now over Right SI joint. No pain along spine. Continue stair step pain management - pain controlled now - asking for [place] and Percocet when available 3 days of prednisone 20mg Continue PT/OT SW consult - need for swing bed at home (2) Lumbar compression fracture Current Visit: Yes Status: Chronic Assessment and plan: Acute/subacute T12. Stable compression fractures L2-L5 No kyphoplasty recommended Pain control. Continue Boniva upon d/c Ortho consult - appreciate recommendations Qualifiers: Encounter type: initial encounter Lumbar vertebra fracture level: L1 Fracture type: closed Qualified Code(s): S32.010A - Wedge compression fracture of first lumbar vertebra, initial encounter for closed fracture (3) Urinary tract infection Current Visit: Yes Status: Acute Assessment and plan: Day 3 of Ceftriaxone. Urine culture - Klebsiella - uncomplicated. Can stop antibiotics after her dose today. Afebrile, WBC 13.7. Qualifiers: Urinary tract infection type: acute cystitis Hematuria presence: with hematuria Qualified Code(s): N30.01 - Acute cystitis with hematuria (4) At high risk for falls Current Visit: Yes Status: Acute Assessment and plan: Fall precautions (5) HTN (hypertension) Current Visit: Yes Status: Acute Assessment and plan: Normotensive now - continue atenolol, lisinopril. Hydralazine prn Acutely elevated on admission Qualifiers: Hypertension type: essential hypertension Qualified Code(s): I10 - Essential (primary) hypertension (6) COPD (chronic obstructive pulmonary disease) Current Visit: Yes Status: Chronic Assessment and plan: Lungs clear on exam, diminished breath sounds. [place] q6h Reports feeling on phlegm in her throat without sputum production Qualifiers: COPD type: unspecified COPD Qualified Code(s): J44.9 - Chronic obstructive pulmonary disease, unspecified (7) DVT prophylaxis Current Visit: Yes Status: Acute Assessment and plan: Subcutaneous heparin - Subjective Interval history: Patient reports her pain is well controlled and is located on the right lower back. She points near the right SI joint and describes it as if "someone were stabbing" her there. Worse with movement and just a dull ache now while resting. Numbness and tingling are present only at night in bilateral lower extremities. Reports a feeling of phlegm in her throat that she is unable to cough up starting after a breathing treatment last night. She also had some difficulty swallowing meat with her evening meal. Denies dizziness, light- headedness, chest pain, dyspnea, cough, N/V/D, dysuria or leg edema. - Constitutional Vitals: Temp Pulse Resp BP Pulse Ox 97.9 F 79 16 151/83 97 02/03/17 07:29 02/03/17 07:29 02/03/17 07:29 02/03/17 08:12 02/03/17 07:29 General appearance: Present: cooperative, mild distress, A&O X 3, pleasant, obese, answers questions appropriately - Head Head exam: Present: atraumatic, normocephalic - Eye Eye exam: Present: EOMI, sclera anicteric - ENT ENT exam: Present: mucous membranes moist - Respiratory Respiratory exam: Present: decreased breath sounds. Absent: rales, rhonchi, wheezes - Cardiovascular Cardiovascular exam: Present: RRR, +S1, +S2. Absent: diastolic murmur, systolic murmur - GI/Abdominal GI/Abdominal exam: Present: normal bowel sounds, soft. Absent: distended, rigid , tenderness - Neurological Exam Neurological exam: Present: alert, CN II-XII intact, oriented X3, no focal deficits Internal Medicine: Result - Labs CBC & Chem 7: 02/03/17 06:54 02/03/17 06:54 Labs: Short CBC 02/03/17 Range/Units 06:54 WBC 13.7 H D (4.3-11.1) K/mcL Hgb 14.4 (11.5-15.4) g/dL Hct 43.1 (35.3-44.9) % Plt Count 197 (140-400) K/mcL BMP 02/03/17 06:54 Sodium 142 Potassium 3.7 Chloride 108 Carbon Dioxide 26 BUN 17 Creatinine 0.85 Glucose 111 H Calcium 9.5 Consult Discharge Plan - Plan Referrals: Dali Soto DO [Primary Care Provider] - 02/07/17 1:30 pm Son Romano DO [Partnered Physician] - 02/15/17 3:30 pm <Sruinder Camarillo - Last Filed: 02/03/17 18:50> Date of Encounter: 02/03/17 - Assessment and plan (1) Neuropathy involving both lower extremities Current Visit: Yes Status: Chronic (2) Sacroiliitis Current Visit: Yes Status: Acute (3) Back pain Current Visit: Yes Status: Acute Qualifiers: Back pain location: low back pain Chronicity: unspecified Back pain laterality: unspecified Sciatica presence: unspecified whether sciatica present Qualified Code(s): M54.5 - Low back pain (4) HTN (hypertension) Current Visit: Yes Status: Acute Qualifiers: Hypertension type: essential hypertension Qualified Code(s): I10 - Essential (primary) hypertension (5) Urinary tract infection Current Visit: Yes Status: Acute Qualifiers: Urinary tract infection type: acute cystitis Hematuria presence: with hematuria Qualified Code(s): N30.01 - Acute cystitis with hematuria (6) Urinary retention Current Visit: Yes Status: Acute (7) COPD (chronic obstructive pulmonary disease) Current Visit: Yes Status: Chronic Qualifiers: COPD type: unspecified COPD Qualified Code(s): J44.9 - Chronic obstructive pulmonary disease, unspecified (8) Osteoporosis Current Visit: Yes Status: Chronic Qualifiers: Osteoporosis type: age-related Presence of current pathological fracture: with current pathological fracture Encounter type: subsequent encounter Fracture healing: with routine healing Qualified Code(s): M80.00XD - Age- related osteoporosis with current pathological fracture, unspecified site, subsequent encounter for fracture with routine healing (9) Arthritis Current Visit: Yes Status: Chronic - Constitutional Vitals: Temp Pulse Resp BP Pulse Ox 98.4 F 80 16 157/79 94 02/03/17 14:50 02/03/17 14:50 02/03/17 14:50 02/03/17 14:50 02/03/17 14:50 Internal Medicine: Result - Labs CBC & Chem 7: 02/03/17 06:54 02/03/17 06:54 Labs: Short CBC 02/03/17 Range/Units 06:54 WBC 13.7 H D (4.3-11.1) K/mcL Hgb 14.4 (11.5-15.4) g/dL Hct 43.1 (35.3-44.9) % Plt Count 197 (140-400) K/mcL BMP 02/03/17 06:54 Sodium 142 Potassium 3.7 Chloride 108 Carbon Dioxide 26 BUN 17 Creatinine 0.85 Glucose 111 H Calcium 9.5 - Attending Attestation I examined this patient and my medical decision-making was reviewed with the Resident Physician on 02/03/17. I agree with the documented findings, disposition and treatment plan as described except to the extent set forth below. Ms Mitchell is currently admitted for intractable back pain and vertebral fractures. She is moderate risk due to potential for worsening neuro status. Ms. Mitchell is having a lot of chest congestion that she cannot cough out. Wants lozenge. Complaining of neuropathy pain. Back pain tolerable. Exam Alert. Comfortable Mucus membranes dry Heart reg Some upper airway rhonchi Abd soft No edema I/P 1. Sacroilitis 2. Chest congestion 3. Peripheral neuropathy Further diagnoses and plan as above.
--- NOTE | 2017-02-03 14:44 | Electrocardiograph Report ---
[place] [address] Test Date: 2017-02-03 Pat Name: Jing Mitchell Department: 113 Room: 3B12 Gender: F Registered Medical Assistant: : 1930 Requested By: Sam Iraheta Order Number: [id number] Reading MD: Gwen Aviles Measurements Intervals [place] Rate: 67 P: 52 [place]: 159 QRS: -9 QRSD: 100 T: 16 QT: 386 QTc: 402 Interpretive Statements SINUS RHYTHM WITH OCCASIONAL VENTRICULAR PREMATURE COMPLEXES Electronically Signed On 02-03-2017 14:43:06 EDT by Gwen Aviles
[2017-02-03] MEDS ORDERED: Benzonatate 100 MG CAPSULE PO PRN (19:39)
[2017-02-03] MEDS: Gabapentin 100 MG CAPSULE PO SCH (20:06)
[2017-02-03] MEDS: diazePAM 10 MG TABLET PO PRN (23:58)
[2017-02-04] MEDS: Ipratropium/Albuterol Neb 3 ML IH SCH ×4 (03:21→21:52)
[2017-02-04 04:27] LABS: Hematocrit 42.3 % (35.3-44.9); Hemoglobin 13.9 g/dL (11.5-15.4); Mean Corpuscular HGB Conc 32.9 g/dL (31.6-35.5); Mean Corpuscular Hemoglobin 30.6 pg (28.0-33.3); Mean Corpuscular Volume 93.2 fL (83.0-100.0); Mean Platelet Volume 10.9 fL (9.4-12.4); Platelet Count 205 K/mcL (140-400); Red Blood Count 4.54 M/mcL (3.82-4.97)
[2017-02-04] MEDS: *HR* OxyCODONE/APAP 10/325 TABLET PO PRN ×4 (05:31→20:16)
[2017-02-04] MEDS: predniSONE 20 MG TABLET PO SCH (09:40)
[2017-02-04] MEDS: Lisinopril 20 MG TABLET PO SCH (09:40)
[2017-02-04] MEDS: Pantoprazole 40 MG VIAL IVP SCH (09:41)
[2017-02-04] MEDS: *HR* Heparin 5,000 UNIT/ML VIAL SQ SCH ×3 (09:41→23:19)
[2017-02-04] MEDS: Aspirin 81 MG TAB.CHEW PO SCH (09:41)
--- NOTE | 2017-02-04 12:39 | Internal Med Progress Note ---
<Ashwin Hollingsworth Marci - Last Filed: 02/04/17 16:15> Date of Encounter: 02/04/17 Time of Encounter: 12:34 - Assessment and plan (1) Sacroiliitis Current Visit: Yes Status: Acute Assessment and plan: Reports localized symptoms over Right SI joint. No pain along spine or radiating pain. Continue stair step pain management - pain controlled now - asking for Bruni and Percocet when available 3 days of prednisone 20mg Continue PT/OT SW consult - planning on d/c to rehab for continued PT pending prior authorization (2) Lumbar compression fracture Current Visit: Yes Status: Chronic Assessment and plan: Acute/subacute T12. Stable compression fractures L2-L5 No kyphoplasty recommended Pain control. Continue Boniva upon d/c Ortho consult - appreciate recommendations Qualifiers: Encounter type: initial encounter Lumbar vertebra fracture level: L1 Fracture type: closed Qualified Code(s): S32.010A - Wedge compression fracture of first lumbar vertebra, initial encounter for closed fracture (3) Urinary tract infection Current Visit: Yes Status: Acute Assessment and plan: 3 days of antibiotics completed - sopped today. Urine culture - Klebsiella - uncomplicated. Qualifiers: Urinary tract infection type: acute cystitis Hematuria presence: with hematuria Qualified Code(s): N30.01 - Acute cystitis with hematuria (4) At high risk for falls Current Visit: Yes Status: Acute Assessment and plan: Fall precautions (5) HTN (hypertension) Current Visit: Yes Status: Acute Assessment and plan: Normotensive now - continue atenolol, lisinopril. Hydralazine prn Acutely elevated on admission Qualifiers: Hypertension type: essential hypertension Qualified Code(s): I10 - Essential (primary) hypertension (6) COPD (chronic obstructive pulmonary disease) Current Visit: Yes Status: Chronic Assessment and plan: Lungs clear on exam, diminished breath sounds. Duonebs q6h Sensation of phlegm is much improved with mucinex Qualifiers: COPD type: unspecified COPD Qualified Code(s): J44.9 - Chronic obstructive pulmonary disease, unspecified (7) DVT prophylaxis Current Visit: Yes Status: Acute Assessment and plan: Subcutaneous heparin - Subjective Interval history: Patient reports her pain is controlled and is located on the right lower back. Her pain is localized to the right SI joint. Worse with movement and just a dull ache now while resting. Numbness and tingling are present only at night in bilateral lower extremities. The sensation of phlegm in her throat is improved with mucinex. Reports no difficulty swallowing anymore and ate a good dinner last night and breakfast this morning. Denies dizziness, light-headedness, chest pain, dyspnea, cough, N/V/D, dysuria or leg edema. - Constitutional Vitals: Temp Pulse Resp BP Pulse Ox 98.3 F 69 16 148/68 94 02/04/17 11:43 02/04/17 11:43 02/04/17 11:43 02/04/17 11:43 02/04/17 11:43 General appearance: Present: cooperative, A&O X 3, pleasant, no acute distress, answers questions appropriately - Head Head exam: Present: atraumatic, normocephalic - Eye Eye exam: Present: sclera anicteric - ENT ENT exam: Present: mucous membranes moist - Respiratory Respiratory exam: Present: CTAB. Absent: rales, rhonchi, wheezes - Cardiovascular Cardiovascular exam: Present: RRR, +S1, +S2. Absent: diastolic murmur, systolic murmur - GI/Abdominal GI/Abdominal exam: Present: normal bowel sounds, soft. Absent: distended, rigid , tenderness - Extremities Exam Extremities exam: Present: warm. Absent: joint swelling, pedal edema, tenderness - Neurological Exam Neurological exam: Present: alert, CN II-XII intact, oriented X3, no focal deficits Internal Medicine: Result - Labs CBC & Chem 7: 02/04/17 03:59 02/03/17 06:54 Labs: Short CBC 02/04/17 Range/Units 03:59 WBC 13.6 H (4.3-11.1) K/mcL Hgb 13.9 (11.5-15.4) g/dL Hct 42.3 (35.3-44.9) % Plt Count 205 (140-400) K/mcL Consult Discharge Plan - Plan Referrals: Dali Soto DO [Primary Care Provider] - 02/07/17 1:30 pm Son Romano DO [Partnered Physician] - 02/15/17 3:30 pm <Surinder Camarillo - Last Filed: 02/04/17 21:05> Date of Encounter: 02/04/17 - Assessment and plan (1) Neuropathy involving both lower extremities Current Visit: Yes Status: Chronic (2) Sacroiliitis Current Visit: Yes Status: Acute (3) Back pain Current Visit: Yes Status: Acute Qualifiers: Back pain location: low back pain Chronicity: unspecified Back pain laterality: unspecified Sciatica presence: unspecified whether sciatica present Qualified Code(s): M54.5 - Low back pain (4) HTN (hypertension) Current Visit: Yes Status: Acute Qualifiers: Hypertension type: essential hypertension Qualified Code(s): I10 - Essential (primary) hypertension (5) Urinary tract infection Current Visit: Yes Status: Acute Qualifiers: Urinary tract infection type: acute cystitis Hematuria presence: with hematuria Qualified Code(s): N30.01 - Acute cystitis with hematuria (6) Urinary retention Current Visit: Yes Status: Acute (7) COPD (chronic obstructive pulmonary disease) Current Visit: Yes Status: Chronic Qualifiers: COPD type: unspecified COPD Qualified Code(s): J44.9 - Chronic obstructive pulmonary disease, unspecified (8) Osteoporosis Current Visit: Yes Status: Chronic Qualifiers: Osteoporosis type: age-related Presence of current pathological fracture: with current pathological fracture Encounter type: subsequent encounter Fracture healing: with routine healing Qualified Code(s): M80.00XD - Age- related osteoporosis with current pathological fracture, unspecified site, subsequent encounter for fracture with routine healing (9) Arthritis Current Visit: Yes Status: Chronic - Constitutional Vitals: Temp Pulse Resp BP Pulse Ox 97.7 F 65 16 135/81 95 02/04/17 18:40 02/04/17 18:40 02/04/17 18:40 02/04/17 18:40 02/04/17 18:40 Internal Medicine: Result - Labs CBC & Chem 7: 02/04/17 03:59 02/03/17 06:54 Labs: Short CBC 02/04/17 Range/Units 03:59 WBC 13.6 H (4.3-11.1) K/mcL Hgb 13.9 (11.5-15.4) g/dL Hct 42.3 (35.3-44.9) % Plt Count 205 (140-400) K/mcL - Attending Attestation I examined this patient and my medical decision-making was reviewed with the Resident Physician on 02/04/17. I agree with the documented findings, disposition and treatment plan as described except to the extent set forth below. Ms. Mitchell is currently admitted for intractable back pain and UTI. She is awaiting SNF. She remains moderate risk due to persistent pain and medications. Ms Mitchell is resting comfortably this AM. No new issues. No fever or chills. Pain is about the same today. Exam Alert. Comfortable in bed Mucus membranes moist Heart reg No wheeze Abd soft I/P 1. Sacroilitis 2. UTI Further diagnoses and plan as above.
[2017-02-04] MEDS: hydrALAZINE 10 MG TABLET PO PRN (14:43)
[2017-02-04] MEDS: Gabapentin 100 MG CAPSULE PO SCH (20:16)
[2017-02-04] MEDS: diazePAM 10 MG TABLET PO PRN (23:18)
[2017-02-04] MEDS: *HR* HYDROcodone/Acet 5/325 mg TABLET PO PRN (23:18)
[2017-02-05] MEDS: *HR* OxyCODONE/APAP 10/325 TABLET PO PRN ×4 (03:01→22:54)
[2017-02-05] MEDS: Ipratropium/Albuterol Neb 3 ML IH SCH ×4 (03:33→21:01)
[2017-02-05] MEDS: *HR* Heparin 5,000 UNIT/ML VIAL SQ SCH ×3 (09:02→22:55)
[2017-02-05] MEDS: Lisinopril 20 MG TABLET PO SCH ×2 (09:03→20:55)
[2017-02-05] MEDS: Aspirin 81 MG TAB.CHEW PO SCH (09:04)
[2017-02-05] MEDS: predniSONE 20 MG TABLET PO SCH (09:04)
[2017-02-05] MEDS: Pantoprazole 40 MG VIAL IVP SCH (09:06)
--- NOTE | 2017-02-05 12:24 | Internal Med Progress Note ---
Date of Encounter: 02/05/17 Time of Encounter: 11:30 - Assessment and plan (1) Oral thrush Current Visit: Yes Status: Suspected Assessment and plan: Nystatin swish and swallow added. (2) Neuropathy involving both lower extremities Current Visit: Yes Status: Chronic Assessment and plan: Currently on low dose Neurontin. Will increase slightly tonight and can be adjusted more when gets to SNF. (3) Sacroiliitis Current Visit: Yes Status: Acute Assessment and plan: Pain control. Steroids for 3 days. Awaiting approval for d/c to SNF tomorrow. (4) Back pain Current Visit: Yes Status: Acute Assessment and plan: Pain control. Qualifiers: Back pain location: low back pain Chronicity: unspecified Back pain laterality: unspecified Sciatica presence: unspecified whether sciatica present Qualified Code(s): M54.5 - Low back pain (5) HTN (hypertension) Current Visit: Yes Status: Acute Assessment and plan: Uncontrolled today. Possible worsened by steroids. Will adjust meds. Qualifiers: Hypertension type: essential hypertension Qualified Code(s): I10 - Essential (primary) hypertension (6) Urinary tract infection Current Visit: Yes Status: Acute Assessment and plan: Abx stopped today. Asymptomatic now. Qualifiers: Urinary tract infection type: acute cystitis Hematuria presence: with hematuria Qualified Code(s): N30.01 - Acute cystitis with hematuria (7) Urinary retention Current Visit: Yes Status: Resolved (8) COPD (chronic obstructive pulmonary disease) Current Visit: Yes Status: Chronic Assessment and plan: Improved with Mucinex. Continue as is for now. Qualifiers: COPD type: chronic bronchitis Chronic bronchitis type: simple Qualified Code(s): J41.0 - Simple chronic bronchitis (9) Osteoporosis Current Visit: Yes Status: Chronic Assessment and plan: Planning for SNF for rehab. Qualifiers: Osteoporosis type: age-related Presence of current pathological fracture: with current pathological fracture Encounter type: subsequent encounter Fracture healing: with routine healing Qualified Code(s): M80.00XD - Age- related osteoporosis with current pathological fracture, unspecified site, subsequent encounter for fracture with routine healing (10) Arthritis Current Visit: Yes Status: Chronic Assessment and plan: Chronic problem (11) Leukocytosis Current Visit: Yes Status: Acute Assessment and plan: Related to Prednisone. Qualifiers: Leukocytosis type: other Qualified Code(s): D72.828 - Other elevated white blood cell count - Subjective Interval history: Ms Mitchell is currently admitted for intractable back pain and UTI. She remains moderate to high risk due to potential for worsening infection and neurologic symptoms. She has issues with blood pressure and new complaint of mouth lesions today. Ms. Mitchell has been getting up in the room. She still has a lot of pain. She has developed some sores and pain in her mouth. No fever or chills. No GI issues. Awaiting d/c to SNF when approved. - Constitutional Vitals: Temp Pulse Resp BP Pulse Ox 97.7 F 57 17 189/85 94 02/05/17 11:29 02/05/17 11:29 02/05/17 11:29 02/05/17 11:29 02/05/17 11:29 General appearance: Present: cooperative, A&O X 3, pleasant, answers questions appropriately - Head Head exam: Present: normocephalic - Eye Eye exam: Present: EOMI, conjuntiva pink - ENT ENT exam: Present: mucous membranes moist Additional comments: Erythema of tongue noted. Small lesions on posterior pharynx noted. - Respiratory Respiratory exam: Present: CTAB. Absent: rales, rhonchi, wheezes - Cardiovascular Cardiovascular exam: Present: RRR. Absent: tachycardia - GI/Abdominal GI/Abdominal exam: Present: soft. Absent: tenderness - Extremities Exam Extremities exam: Present: warm. Absent: tenderness - Neurological Exam Neurological exam: Present: alert, oriented X3, no focal deficits - Psychiatric Psychiatric exam: Present: normal affect, normal mood - Skin Skin exam: Present: warm. Absent: rash Internal Medicine: Result - Labs CBC & Chem 7: 02/04/17 03:59 02/03/17 06:54 Consult Discharge Plan - Plan Referrals: Dali Soto DO [Primary Care Provider] - 02/07/17 1:30 pm oSn Romano DO [Partnered Physician] - 02/15/17 3:30 pm
[2017-02-05] MEDS: Nystatin SUSP 5 ML UD.LIQ PO SCH ×3 (16:16→20:56)
[2017-02-05] MEDS: Gabapentin 100 MG CAPSULE PO SCH (20:56)
[2017-02-05] MEDS: diazePAM 10 MG TABLET PO PRN (22:55)
[2017-02-06] MEDS: *HR* HYDROcodone/Acet 5/325 mg TABLET PO PRN ×2 (02:00→06:38)
[2017-02-06] MEDS: Ipratropium/Albuterol Neb 3 ML IH SCH ×4 (03:01→22:19)
[2017-02-06 05:11] LABS: Alanine Aminotransferase 322 Units/L (0-55); Albumin 3.3 g/dL (3.5-5.0); Albumin/Globulin Ratio 0.9 (1.1-2.2); Alkaline Phosphatase 158 Units/L (38-126); Aspartate Amino Transferase 160 Units/L (5-34); BUN/Creatinine Ratio 20 (6-26); Bilirubin,Total 0.4 mg/dL (0.2-1.2); Blood Urea Nitrogen 17 mg/dL (7-20); Calcium 9.7 mg/dL (8.6-10.8); Carbon Dioxide 30 mEq/L (19-29); Chloride 105 mEq/L (98-109); Globulin 3.7 g/dL (2.4-3.5); Glucose 98 mg/dL (70-99); Magnesium 2.3 mg/dL (1.6-2.6); Osmolality,Calculated 296 (280-300); Potassium 4.2 mEq/L (3.5-4.5); Sodium 142 mEq/L (136-145); eGFR For African Americans > 60 (> 60); eGFR For Non-African Americans > 60 (> 60)
[2017-02-06 05:46] LABS: Hematocrit 45.7 % (35.3-44.9); Hemoglobin 15.1 g/dL (11.5-15.4); Mean Corpuscular Hemoglobin 31.2 pg (28.0-33.3); Mean Corpuscular Volume 94.4 fL (83.0-100.0); Mean Platelet Volume 11.6 fL (9.4-12.4); Platelet Count 227 K/mcL (140-400); Red Blood Count 4.84 M/mcL (3.82-4.97); Red Cell Distribution Width 13.8 % (11.5-14.5)
[2017-02-06] MEDS: hydrALAZINE 10 MG TABLET PO PRN (06:38)
[2017-02-06] MEDS: Aspirin 81 MG TAB.CHEW PO SCH (08:12)
[2017-02-06] MEDS: Lisinopril 20 MG TABLET PO SCH ×2 (08:12→20:18)
[2017-02-06] MEDS: *HR* OxyCODONE/APAP 10/325 TABLET PO PRN (08:13)
[2017-02-06] MEDS: *HR* Heparin 5,000 UNIT/ML VIAL SQ SCH ×3 (08:13→23:47)
[2017-02-06] MEDS: Nystatin SUSP 5 ML UD.LIQ PO SCH ×4 (09:40→20:19)
--- NOTE | 2017-02-06 10:54 | Discharge Summary ---
<Ashwin Hollingsworth R - Last Filed: 02/06/17 14:11> Date of Encounter: 02/06/17 Time of Encounter: 10:44 - Discharge Diagnosis (1) Sacroiliitis Priority: Primary Status: Acute (2) Lumbar compression fracture Priority: Secondary Status: Chronic Qualifiers: Encounter type: initial encounter Lumbar vertebra fracture level: L1 Fracture type: closed Qualified Code(s): S32.010A - Wedge compression fracture of first lumbar vertebra, initial encounter for closed fracture (3) Urinary tract infection Priority: Secondary Status: Acute Qualifiers: Urinary tract infection type: acute cystitis Hematuria presence: with hematuria Qualified Code(s): N30.01 - Acute cystitis with hematuria (4) At high risk for falls Priority: Secondary Status: Acute (5) HTN (hypertension) Priority: Secondary Status: Acute Qualifiers: Hypertension type: essential hypertension Qualified Code(s): I10 - Essential (primary) hypertension (6) COPD (chronic obstructive pulmonary disease) Priority: Secondary Status: Chronic Qualifiers: COPD type: chronic bronchitis Chronic bronchitis type: simple Qualified Code(s): J41.0 - Simple chronic bronchitis (7) DVT prophylaxis Priority: Secondary Status: Acute - Discharge Medications Prescriptions: OxyCODONE Immed Rel [Roxicodone 5 MG] 10 mg PO Q6HR PRN #10 tab PRN Reason: Severe Pain Docusate [Colace] 100 mg PO BID PRN #30 PRN Reason: Constipation Gabapentin [Neurontin] 200 mg PO HS #10 Lidocaine Patch [Lidoderm 5% patch] 1 each TP DAILY #5 patch Home Medications: Albuterol Neb [Proventil Neb] 2.5 mg IH QID 02/01/17 [History] Aspirin 81 mg PO DAILY 02/01/17 [History] Atenolol [Tenormin] 50 mg PO DAILY 02/01/17 [History] Beclomethasone Diprop 80mcg [QVAR 80 mcg] 1 puff IH BID 02/01/17 [History] Ibandronate Sodium [Boniva] 150 mg PO QMONTH 02/01/17 [History] Lisinopril [Zestril] 20 mg PO DAILY 02/01/17 [History] diazePAM [Valium] 10 mg PO HS PRN 02/01/17 [History] Docusate [Colace] 100 mg PO BID PRN #30 02/06/17 [Rx] Gabapentin [Neurontin] 200 mg PO HS #10 02/06/17 [Rx] Lidocaine Patch [Lidoderm 5% patch] 1 each TP DAILY #5 patch 02/06/17 [Rx] OxyCODONE Immed Rel [Roxicodone 5 MG] 10 mg PO Q6HR PRN #10 tab 02/06/17 [Rx] Allergies/Adverse Reactions: Allergies No Known Allergies Allergy (Verified 02/01/17 09:20) Procedures/tests Complete & Pending: Procedures Performed prior 72 hours Category Date Time Status EKG [ECG 12 lead ECG] [ECG] Stat Y 02/03/17 12:17 Completed Date of admission: 02/01/17 14:42 Primary care physician: Prateek Willard Consults: 02/01/17 20:06 Consult to Occupational Therapy [CONS] Routine Comment: Evaluate, develop and implement POC Reason for Consult: Patient has hx of chronic compression fractures and severe back pain causing problems with ambulation. 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 Consult to Physical Therapy [CONS] Routine Comment: Evaluate, develop and implement POC Reason for Consult: Patient has hx of chronic compression fractures and severe back pain causing problems with ambulation. 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 Discharging clinician: Ashwin Hollingsworth Anticipated date of discharge: 02/06/17 - Patient Status Disposition: Transfer Inpatient Rehab Fac Condition: Good Functional capacity at discharge: uses cane/walker Overall status at discharge: patient is progressing back to baseline - Discharge Instructions Follow Up With: Son Romano DO [Partnered Physician] - 02/15/17 3:30 pm Additional Instructions: Continue to work with physical therapy to increase strength Increase activity as directed by physical therapy recommendations Obtain repeat lab work in one week to monitor LFT's Follow-up with Dr. Romano for pain management - Diet and Activity Activity: as per physical therapy Diet: advance to your usual diet Interval History: Patient seen and examined. Reports pain of her Right low back with movements, well controlled otherwise. Denies light-headedness, chest pain, dyspnea, cough, N/V/D, dysuria, or leg pain/swelling. Hospital course: Ms. Mitchell is a 86 year old female with PMH of COPD and osteoporosis with chief complaint of progressively worsening low back pain after moving a shelf a home 6 days prior. Initially she presented with radiating pain down her right leg, but then the pain became localized over the right SI joint. MRI of spine showed acute/subacute fracture of T12 (new since 2008 previous study) and stable compression fractures of L2-L5. She was evaluated by pain management and there was no kyphoplasty indicated at this time because of the age of the fractures. She received a short course of steroids and PO oxycodone for pain control. She also was treated with 3 days of ceftriaxone for a UTI. She is to follow-up as an out-patient with pain management for a possible SI joint injection. Upon discharge she is to continue PT at a rehab facility. She will need repeat lab work for LFT's as they were elevated during her stay. I suspect this is likely transient and secondary to pain medication. Will decrease her pain medicine and discharge on oxycodone alone. - Time Spent with Patient Total time spent providing and/or coordinating discharge services: - Constitutional Vitals: Temp Pulse Resp BP Pulse Ox 97.7 F 86 18 154/84 94 02/06/17 06:52 02/06/17 09:28 02/06/17 06:52 02/06/17 09:28 02/06/17 06:52 General appearance: Present: cooperative, A&O X 3, pleasant, answers questions appropriately - Head Head exam: Present: atraumatic, normocephalic - ENT ENT exam: Present: mucous membranes moist - Respiratory Respiratory exam: Present: CTAB. Absent: rales, rhonchi, wheezes - Cardiovascular Cardiovascular exam: Present: RRR, +S1, +S2. Absent: diastolic murmur, systolic murmur - GI/Abdominal GI/Abdominal exam: Present: normal bowel sounds, soft. Absent: distended, rigid , tenderness, no peritoneal signs - Extremities Exam Extremities exam: Present: warm, radial pulses palpable and symmetrical. Absent : joint swelling, tenderness - Neurological Exam Neurological exam: Present: alert, CN II-XII intact, oriented X3, no focal deficits <Surinder Camarillo - Last Filed: 02/06/17 19:12> Date of Encounter: 02/06/17 - Discharge Diagnosis (1) Sacroiliitis Status: Acute (2) Back pain Priority: Primary Status: Acute Qualifiers: Back pain location: low back pain Chronicity: unspecified Back pain laterality: unspecified Sciatica presence: unspecified whether sciatica present Qualified Code(s): M54.5 - Low back pain (3) Oral thrush Priority: Secondary Status: Suspected (4) Neuropathy involving both lower extremities Priority: Secondary Status: Chronic (5) HTN (hypertension) Status: Acute Qualifiers: Hypertension type: essential hypertension Qualified Code(s): I10 - Essential (primary) hypertension (6) Urinary tract infection Status: Acute Qualifiers: Urinary tract infection type: acute cystitis Hematuria presence: with hematuria Qualified Code(s): N30.01 - Acute cystitis with hematuria (7) Urinary retention Priority: Secondary Status: Resolved (8) COPD (chronic obstructive pulmonary disease) Status: Chronic Qualifiers: COPD type: chronic bronchitis Chronic bronchitis type: simple Qualified Code(s): J41.0 - Simple chronic bronchitis (9) Osteoporosis Priority: Secondary Status: Chronic Qualifiers: Osteoporosis type: age-related Presence of current pathological fracture: with current pathological fracture Encounter type: subsequent encounter Fracture healing: with routine healing Qualified Code(s): M80.00XD - Age- related osteoporosis with current pathological fracture, unspecified site, subsequent encounter for fracture with routine healing (10) Arthritis Priority: Secondary Status: Chronic (11) Leukocytosis Priority: Secondary Status: Resolved Qualifiers: Leukocytosis type: other Qualified Code(s): D72.828 - Other elevated white blood cell count (12) Transaminitis Priority: Secondary Status: Acute Date of admission: 02/01/17 14:42 Primary care physician: Prateek Willard Consults: 02/01/17 20:06 Consult to Occupational Therapy [CONS] Routine Comment: Evaluate, develop and implement POC Reason for Consult: Patient has hx of chronic compression fractures and severe back pain causing problems with ambulation. 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 Consult to Physical Therapy [CONS] Routine Comment: Evaluate, develop and implement POC Reason for Consult: Patient has hx of chronic compression fractures and severe back pain causing problems with ambulation. 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 Hospital course: Ms. Mitchell is a 86 year old female - Time Spent with Patient Total time spent providing and/or coordinating discharge services: 40min - Constitutional Vitals: Temp Pulse Resp BP Pulse Ox 97.8 F 107 16 169/94 95 02/06/17 18:27 02/06/17 18:27 02/06/17 18:27 02/06/17 18:27 02/06/17 18:27 - Attending Attestation I examined this patient and my medical decision-making was reviewed with the Resident Physician on 02/06/17. I agree with the documented findings, disposition and treatment plan as described except to the extent set forth below. Ms. Mitchell was admitted for intractable back pain. She was seen by pain management who felt was sacroilitis. She is afebrile and vitals stable. She will be discharged to SNF. Exam Alert. Comfortable in chair. Heart reg No wheeze. Abd soft Plan D/C to SNF when available. Recheck liver enzymes- ? due to pain meds.
[2017-02-06] MEDS: *HR* OxyCODONE Immed Rel 5 MG TABLET PO PRN ×2 (17:48→23:46)
[2017-02-06] MEDS: Gabapentin 100 MG CAPSULE PO SCH (20:18)
[2017-02-06] MEDS: diazePAM 10 MG TABLET PO PRN (20:19)
[2017-02-07] MEDS: Ipratropium/Albuterol Neb 3 ML IH SCH ×2 (03:28→07:37)
[2017-02-07 04:52] LABS: Hematocrit 48.2 % (35.3-44.9); Hemoglobin 15.6 g/dL (11.5-15.4); Mean Corpuscular HGB Conc 32.4 g/dL (31.6-35.5); Mean Corpuscular Hemoglobin 30.1 pg (28.0-33.3); Mean Corpuscular Volume 93.1 fL (83.0-100.0); Mean Platelet Volume 10.4 fL (9.4-12.4); Platelet Count 263 K/mcL (140-400); Red Blood Count 5.18 M/mcL (3.82-4.97); Red Cell Distribution Width 13.9 % (11.5-14.5)
[2017-02-07 05:00] LABS: Albumin 3.4 g/dL (3.5-5.0); Albumin/Globulin Ratio 0.9 (1.1-2.2); Bilirubin,Direct 0.3 mg/dL (0.0-0.5); Bilirubin,Indirect 0.3 mg/dL (0.0-1.2); Bilirubin,Total 0.6 mg/dL (0.2-1.2); Globulin 3.8 g/dL (2.4-3.5); Total Protein 7.2 g/dL (6.0-8.3)
[2017-02-07 06:55] VITALS: BP 163/75
[2017-02-07] MEDS: *HR* Heparin 5,000 UNIT/ML VIAL SQ SCH (07:45)
[2017-02-07] MEDS: Nystatin SUSP 5 ML UD.LIQ PO SCH ×2 (07:45→13:52)
[2017-02-07] MEDS: Aspirin 81 MG TAB.CHEW PO SCH (07:46)
[2017-02-07] MEDS: Lisinopril 20 MG TABLET PO SCH (07:46)
--- NOTE | 2017-02-07 08:25 | Internal Med Progress Note ---
<DarrickAshwin Marci - Last Filed: 02/07/17 08:23> Date of Encounter: 02/07/17 Time of Encounter: 08:23 - Assessment and plan (1) Sacroiliitis Current Visit: Yes Status: Acute Assessment and plan: Reports localized symptoms over Right SI joint. No pain along spine or radiating pain. Continue stair step pain management - pain controlled now - oxycodone Continue PT/OT SW consult - planning on d/c to rehab for continued PT pending prior authorization. (2) Lumbar compression fracture Current Visit: Yes Status: Chronic Assessment and plan: Acute/subacute T12. Stable compression fractures L2-L5 No kyphoplasty recommended Pain control. 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 This is helping her night time neuropathy (4) Oral thrush Current Visit: Yes Status: Suspected Assessment and plan: Nystatin swish and swallow. (5) Transaminitis Current Visit: Yes Status: Acute Assessment and plan: Likely secondary to pain medication - will decrease dose and recheck (6) Urinary tract infection Current Visit: Yes Status: Acute Assessment and plan: 3 days of antibiotics completed - sopped today. Urine culture - Klebsiella - uncomplicated. Qualifiers: Urinary tract infection type: acute cystitis Hematuria presence: with hematuria Qualified Code(s): N30.01 - Acute cystitis with hematuria (7) At high risk for falls Current Visit: Yes Status: Acute Assessment and plan: Fall precautions (8) HTN (hypertension) Current Visit: Yes Status: Acute Assessment and plan: Normotensive now - continue atenolol, lisinopril. Hydralazine prn Acutely elevated on admission Qualifiers: Hypertension type: essential hypertension Qualified Code(s): I10 - Essential (primary) hypertension (9) COPD (chronic obstructive pulmonary disease) Current Visit: Yes Status: Chronic Assessment and plan: Lungs clear on exam, diminished breath sounds. Duonebs q6h Sensation of phlegm is much improved with mucinex Qualifiers: COPD type: chronic bronchitis Chronic bronchitis type: simple Qualified Code(s): J41.0 - Simple chronic bronchitis (10) DVT prophylaxis Current Visit: Yes Status: Acute Assessment and plan: Subcutaneous heparin - Subjective Interval history: Patient reports her pain is controlled and is located on the right lower back. Her pain is localized to the right SI joint. Worse with movement and just a dull ache now while resting. Numbness and tingling at night are improving in bilateral lower extremities. Denies dizziness, light-headedness, chest pain, dyspnea, cough, N/V/D, dysuria or leg edema. - Constitutional Vitals: Temp Pulse Resp BP Pulse Ox 98.1 F 63 18 163/75 91 02/07/17 06:54 02/07/17 06:54 02/07/17 06:54 02/07/17 06:54 02/07/17 06:54 General appearance: Present: cooperative, A&O X 3, pleasant, answers questions appropriately - Head Head exam: Present: atraumatic, normocephalic - Respiratory Respiratory exam: Present: CTAB. Absent: rales, rhonchi, wheezes - Cardiovascular Cardiovascular exam: Present: RRR, +S1, +S2. Absent: diastolic murmur, systolic murmur - GI/Abdominal GI/Abdominal exam: Present: normal bowel sounds, soft. Absent: firm, rigid, tenderness - Neurological Exam Neurological exam: Present: alert, CN II-XII intact, oriented X3, no focal deficits Internal Medicine: Result - Labs CBC & Chem 7: 02/07/17 04:17 02/06/17 04:02 Labs: Short CBC 02/07/17 Range/Units 04:17 WBC 11.5 H (4.3-11.1) K/mcL Hgb 15.6 H (11.5-15.4) g/dL Hct 48.2 H (35.3-44.9) % Plt Count 263 (140-400) K/mcL Liver Function 02/07/17 Range/Units 04:17 Total Bilirubin 0.6 (0.2-1.2) mg/dL Direct Bilirubin 0.3 (0.0-0.5) mg/dL AST 160 H (5-34) Units/L ALT 283 H (0-55) Units/L Alkaline Phosphatase 228 H (38-126) Units/L Albumin 3.4 L (3.5-5.0) g/dL Consult Discharge Plan - Plan Additional Instructions: Continue to work with physical therapy to increase strength Increase activity as directed by physical therapy recommendations Obtain repeat lab work in one week to monitor LFT's Follow-up with Dr. Romano for pain management Referrals: Son Romano DO [Partnered Physician] - 02/15/17 3:30 pm Prescriptions: OxyCODONE Immed Rel [Roxicodone 5 MG] 10 mg PO Q6HR PRN #10 tab PRN Reason: Severe Pain Docusate [Colace] 100 mg PO BID PRN #30 PRN Reason: Constipation Gabapentin [Neurontin] 200 mg PO HS #10 Lidocaine Patch [Lidoderm 5% patch] 1 each TP DAILY #5 patch <Yosef Cool H - Last Filed: 02/07/17 13:39> Date of Encounter: 02/07/17 - Constitutional Vitals: Temp Pulse Resp BP Pulse Ox 98.1 F 63 18 163/75 91 02/07/17 06:54 02/07/17 06:54 02/07/17 06:54 02/07/17 06:54 02/07/17 06:54 Internal Medicine: Result - Labs CBC & Chem 7: 02/07/17 04:17 02/07/17 08:32 Labs: Short CBC 02/07/17 Range/Units 04:17 WBC 11.5 H (4.3-11.1) K/mcL Hgb 15.6 H (11.5-15.4) g/dL Hct 48.2 H (35.3-44.9) % Plt Count 263 (140-400) K/mcL BMP 02/07/17 08:32 Sodium 140 Potassium 4.1 Chloride 103 Carbon Dioxide 27 BUN 16 Creatinine 0.84 Glucose 105 H Calcium 9.9 Liver Function 02/07/17 02/07/17 Range/Units 04:17 08:32 Total Bilirubin 0.6 0.5 (0.2-1.2) mg/dL Direct Bilirubin 0.3 (0.0-0.5) mg/dL AST 160 H 123 H (5-34) Units/L ALT 283 H 270 H (0-55) Units/L Alkaline Phosphatase 228 H 226 H (38-126) Units/L Albumin 3.4 L 3.3 L (3.5-5.0) g/dL - Attending Attestation stable to be discharged I examined this patient and my medical decision-making was reviewed with the Resident Physician. I agree with the documented findings, disposition and treatment plan as described except to the extent set forth below.
[2017-02-07 09:01] LABS: Alanine Aminotransferase 270 Units/L (0-55); Albumin 3.3 g/dL (3.5-5.0); Albumin/Globulin Ratio 0.8 (1.1-2.2); Alkaline Phosphatase 226 Units/L (38-126); Aspartate Amino Transferase 123 Units/L (5-34); BUN/Creatinine Ratio 19 (6-26); Bilirubin,Total 0.5 mg/dL (0.2-1.2); Blood Urea Nitrogen 16 mg/dL (7-20); Calcium 9.9 mg/dL (8.6-10.8); Carbon Dioxide 27 mEq/L (19-29); Chloride 103 mEq/L (98-109); Globulin 4.2 g/dL (2.4-3.5); Glucose 105 mg/dL (70-99); Osmolality,Calculated 292 (280-300); Potassium 4.1 mEq/L (3.5-4.5); Sodium 140 mEq/L (136-145); Total Protein 7.5 g/dL (6.0-8.3); eGFR For African Americans > 60 (> 60); eGFR For Non-African Americans > 60 (> 60)
--- NOTE | 2017-02-07 13:39 | Physician Discharge Referral ---
<Ashwin Hollingsworth R - Last Filed: 02/07/17 13:37> [facility] Referral Info Transfer To: [facility] Provider in Charge after Transfer: PCP, Other ([facility]) Institutional Level of Care: Skilled - Diagnosis (1) Sacroiliitis Priority: Primary Status: Acute (2) Lumbar compression fracture Priority: Secondary Status: Chronic (3) Neuropathy involving both lower extremities Priority: Secondary Status: Chronic (4) Oral thrush Priority: Secondary Status: Suspected (5) Transaminitis Priority: Secondary Status: Acute (6) Urinary tract infection Priority: Secondary Status: Acute (7) At high risk for falls Priority: Secondary Status: Acute (8) HTN (hypertension) Priority: Secondary Status: Acute (9) COPD (chronic obstructive pulmonary disease) Priority: Secondary Status: Chronic (10) DVT prophylaxis Priority: Secondary Status: Acute - Transfer Medications Prescriptions: OxyCODONE Immed Rel [Roxicodone 5 MG] 10 mg PO Q6HR PRN #10 tab PRN Reason: Severe Pain Docusate [Colace] 100 mg PO BID PRN #30 PRN Reason: Constipation Gabapentin [Neurontin] 200 mg PO HS #10 Lidocaine Patch [Lidoderm 5% patch] 1 each TP DAILY #5 patch Home Medications: Albuterol Neb [Proventil Neb] 2.5 mg IH QID 02/01/17 [History] Aspirin 81 mg PO DAILY 02/01/17 [History] Atenolol [Tenormin] 50 mg PO DAILY 02/01/17 [History] Beclomethasone Diprop 80mcg [QVAR 80 mcg] 1 puff IH BID 02/01/17 [History] Ibandronate Sodium [Boniva] 150 mg PO QMONTH 02/01/17 [History] Lisinopril [Zestril] 20 mg PO DAILY 02/01/17 [History] diazePAM [Valium] 10 mg PO HS PRN 02/01/17 [History] Docusate [Colace] 100 mg PO BID PRN #30 02/06/17 [Rx] Gabapentin [Neurontin] 200 mg PO HS #10 02/06/17 [Rx] Lidocaine Patch [Lidoderm 5% patch] 1 each TP DAILY #5 patch 02/06/17 [Rx] OxyCODONE Immed Rel [Roxicodone 5 MG] 10 mg PO Q6HR PRN #10 tab 02/06/17 [Rx] Allergies/Adverse Reactions: Allergies No Known Allergies Allergy (Verified 02/01/17 09:20) - Respiratory Orders Smoking Cessation: Smoking cessation has been advised. For more information, call the [facility] Line at [phone]-NOW. - Advance Directives Code Status: DNR-Arrest/Don't Intubate - Mobility Orders Ambulate (with walker, per physical therapy) - Rehabiliation Orders Rehab Potential: Fair Rehab Orders: Evaluation for Physical Therapy - Diet Orders Regular CERTIFICATION: I certify that the transfer of the above named patient to an Extended Care Facility is necessary for the continuing treatment of the diagnosis listed. The above information is true and accurate reflection of patient's current condition. Confidential - Redisclosure prohibited without a patient's written consent. <Yosef Cool - Last Filed: 02/07/17 13:43> - Respiratory Orders Smoking Cessation: Smoking cessation has been advised. For more information, call the [facility] Line at [phone]. CERTIFICATION: I certify that the transfer of the above named patient to an Extended Care Facility is necessary for the continuing treatment of the diagnosis listed. The above information is true and accurate reflection of patient's current condition. Confidential - Redisclosure prohibited without a patient's written consent. I examined this patient and my medical decision-making was reviewed with the Resident Physician. I agree with the documented findings, disposition and treatment plan as described except to the extent set forth below.
[2017-02-07] MEDS: *HR* OxyCODONE Immed Rel 5 MG TABLET PO PRN (13:52)
== END 2017-02-07 14:16 | DRG 552 ==
LOC: 3BNU 09:15 → EMEROO 09:15 → 3BNU 14:05 → SUATTDRO 14:42
PROVIDERS: ADMIT Nurse Practitioner Family; ATTEND Internal Medicine

== ENCOUNTER 2020-02-29 20:45 | Inpatient (IN) ==
[2020-02-29] MEDS ORDERED: *HR* OxyCODONE/APAP 5/325 TABLET PO ONE (20:59)
[2020-02-29] MEDS ORDERED: 0.9 % Sodium Chloride 500 ML IVC ONE (22:16)
[2020-02-29 22:43] LABS: Basophils % 0.4 %; Eosinophils # 0.3 K/mcL (0.0-0.6); Eosinophils % 3.5 %; Hematocrit 46.8 % (35.3-44.9); Hemoglobin 15.6 g/dL (11.5-15.4); Immature Granulocytes % 0.4 % (0-4); Lymphocytes # 2.2 K/mcL (0.6-4.6); Lymphocytes % 28.3 %; Mean Corpuscular HGB Conc 33.3 g/dL (31.6-35.5); Mean Corpuscular Hemoglobin 30.7 pg (28.0-33.3); Mean Corpuscular Volume 92.1 fL (83.0-100.0); Mean Platelet Volume 9.9 fL (9.4-12.4); Monocytes # 0.8 K/mcL (0.0-1.3); Monocytes % 10.1 %; Neutrophils # 4.4 K/mcL (1.6-8.9); Platelet Count 240 K/mcL (140-400); Red Blood Count 5.08 M/mcL (3.82-4.97); Red Cell Distribution Width 12.9 % (11.5-14.5); Segmented Neutrophils % 57.3 %; White Blood Count 7.6 K/mcL (4.3-11.1)
[2020-02-29 22:59] LABS: BUN/Creatinine Ratio 14 (6-26); Blood Urea Nitrogen 13 mg/dL (8-23); Calcium 9.6 mg/dL (8.6-10.3); Carbon Dioxide 27 mEq/L (23-29); Chloride 105 mEq/L (98-107); Glucose 100 mg/dL (70-105); Lipase 54 Units/L (11-82); Osmolality,Calculated 290 (280-300); Potassium 3.1 mEq/L (3.5-5.1); Sodium 140 mEq/L (136-145); Troponin I < 0.03 ng/mL (< 0.04); eGFR For African Americans > 60 (> 60); eGFR For Non-African Americans 57 (> 60)
[2020-02-29 23:13] LABS: Bilirubin,Urine Negative (Negative); Blood,Urine Negative (Negative); Clarity,Urine Clear (Clear); Color,Urine Colorless (Yellow); Glucose,Urine (UA) Normal (Normal); Ketones,Urine Negative (Negative); Leukocyte Esterase,Urine Negative (Negative); Nitrite,Urine Negative (Negative); Protein,Urine Negative (Neg-Trace); Specific Gravity,Urine 1.009 (1.010-1.025); Urobilinogen,Urine Normal (Normal)
[2020-02-29] MEDS ORDERED: Isovue-370 500 ML BOTTLE IVP ONE (23:30)
[2020-03-01] MEDS ORDERED: Naloxone 0.4 MG/ML INJ IVP PRN (00:10)
[2020-03-01] MEDS ORDERED: Ondansetron 4 MG/2 ML VIAL IVP PRN (00:10)
[2020-03-01] MEDS: *HR* Labetalol 20 MG/4 ML SYRINGE IVP PRN (00:31)
[2020-03-01] MEDS: *HR* OxyCODONE/APAP 5/325 TABLET PO PRN ×2 (02:50→09:25)
[2020-03-01 03:40] LABS: Basophils % 0.3 %; Eosinophils # 0.3 K/mcL (0.0-0.6); Eosinophils % 3.4 %; Hematocrit 45.6 % (35.3-44.9); Immature Granulocytes % 0.3 % (0-4); Lymphocytes # 2.4 K/mcL (0.6-4.6); Lymphocytes % 27.6 %; Mean Corpuscular HGB Conc 32.9 g/dL (31.6-35.5); Mean Corpuscular Hemoglobin 30.8 pg (28.0-33.3); Mean Corpuscular Volume 93.6 fL (83.0-100.0); Mean Platelet Volume 10.3 fL (9.4-12.4); Monocytes # 0.7 K/mcL (0.0-1.3); Monocytes % 8.5 %; Neutrophils # 5.2 K/mcL (1.6-8.9); Platelet Count 231 K/mcL (140-400); Red Blood Count 4.87 M/mcL (3.82-4.97); Red Cell Distribution Width 12.9 % (11.5-14.5); Segmented Neutrophils % 59.9 %; White Blood Count 8.6 K/mcL (4.3-11.1)
[2020-03-01 03:44] LABS: INR 1.2; Prothrombin Time 13.3 Seconds (9.4-12.1)
[2020-03-01 03:59] LABS: BUN/Creatinine Ratio 13 (6-26); Blood Urea Nitrogen 11 mg/dL (8-23); Calcium 9.2 mg/dL (8.6-10.3); Carbon Dioxide 27 mEq/L (23-29); Chloride 105 mEq/L (98-107); Glucose 108 mg/dL (70-105); Osmolality,Calculated 292 (280-300); Potassium 3.1 mEq/L (3.5-5.1); Sodium 141 mEq/L (136-145); eGFR For African Americans > 60 (> 60); eGFR For Non-African Americans > 60 (> 60)
[2020-03-01] MEDS: lisinopriL 20 MG TABLET PO SCH (09:20)
[2020-03-01] MEDS: *HR* OxyCODONE/APAP 10/325 TABLET PO PRN ×2 (15:29→20:00)
[2020-03-02] MEDS: *HR* OxyCODONE/APAP 10/325 TABLET PO PRN ×3 (01:31→20:02)
[2020-03-02] MEDS: lisinopriL 20 MG TABLET PO SCH (08:52)
[2020-03-02] MEDS: *HR* Labetalol 20 MG/4 ML SYRINGE IVP PRN (18:56)
[2020-03-02] MEDS: *HR* Heparin 5,000 UNIT/ML VIAL SQ SCH (19:58)
[2020-03-03] MEDS: *HR* OxyCODONE/APAP 10/325 TABLET PO PRN ×3 (00:21→09:50)
[2020-03-03] MEDS: *HR* Heparin 5,000 UNIT/ML VIAL SQ SCH ×2 (05:33→19:52)
[2020-03-03 06:06] LABS: BUN/Creatinine Ratio 17 (6-26); Blood Urea Nitrogen 17 mg/dL (8-23); Calcium 9.5 mg/dL (8.6-10.3); Carbon Dioxide 27 mEq/L (23-29); Chloride 107 mEq/L (98-107); Glucose 85 mg/dL (70-105); Osmolality,Calculated 295 (280-300); Potassium 3.9 mEq/L (3.5-5.1); Sodium 142 mEq/L (136-145); eGFR For African Americans > 60 (> 60); eGFR For Non-African Americans 52 (> 60)
[2020-03-03] MEDS: lisinopriL 20 MG TABLET PO SCH (09:08)
[2020-03-04] MEDS: *HR* Labetalol 20 MG/4 ML SYRINGE IVP PRN (03:45)
[2020-03-04] MEDS: *HR* Heparin 5,000 UNIT/ML VIAL SQ SCH ×2 (05:38→16:54)
[2020-03-04] MEDS: *HR* OxyCODONE/APAP 10/325 TABLET PO PRN ×3 (05:39→20:27)
[2020-03-04] MEDS: lisinopriL 20 MG TABLET PO SCH (09:28)
[2020-03-04 16:10] LABS: INR 1.1; Prothrombin Time 12.6 Seconds (9.4-12.1)
[2020-03-04 16:13] LABS: Activated Partial Thrombo Time 38.2 Seconds (26.0-36.0)
[2020-03-04 16:20] LABS: Calcium 9.6 mg/dL (8.6-10.3); Potassium 3.8 mEq/L (3.5-5.1)
[2020-03-05] MEDS: *HR* Labetalol 20 MG/4 ML SYRINGE IVP PRN (00:26)
[2020-03-05] MEDS: *HR* OxyCODONE/APAP 10/325 TABLET PO PRN (00:27)
[2020-03-05] MEDS: *HR* Heparin 5,000 UNIT/ML VIAL SQ SCH ×2 (06:09→16:56)
[2020-03-05 08:03] LABS: BUN/Creatinine Ratio 21 (6-26); Blood Urea Nitrogen 20 mg/dL (8-23); Calcium 9.6 mg/dL (8.6-10.3); Carbon Dioxide 29 mEq/L (23-29); Chloride 108 mEq/L (98-107); Glucose 83 mg/dL (70-105); Osmolality,Calculated 298 (280-300); Potassium 4.1 mEq/L (3.5-5.1); Sodium 143 mEq/L (136-145); eGFR For African Americans > 60 (> 60); eGFR For Non-African Americans 54 (> 60)
[2020-03-05] MEDS: lisinopriL 20 MG TABLET PO SCH (09:03)
[2020-03-05] MEDS ORDERED: Perflutren Lipid Microsphere 1.3 ML in 0.9 % Sodium Chloride 8.7 ML IVP PRN (10:15)
[2020-03-05] MEDS ORDERED: lisinopriL 10 MG TABLET PO ONE (15:30)
[2020-03-05] MEDS ORDERED: lisinopriL 10 MG TABLET PO SCH (15:30)
[2020-03-06 00:50] LABS: Hematocrit 44.1 % (35.3-44.9); Hemoglobin 14.3 g/dL (11.5-15.4); Mean Corpuscular HGB Conc 32.4 g/dL (31.6-35.5); Mean Corpuscular Hemoglobin 30.7 pg (28.0-33.3); Mean Corpuscular Volume 94.6 fL (83.0-100.0); Mean Platelet Volume 10.3 fL (9.4-12.4); Platelet Count 213 K/mcL (140-400); Red Blood Count 4.66 M/mcL (3.82-4.97); Red Cell Distribution Width 13.4 % (11.5-14.5); White Blood Count 8.1 K/mcL (4.3-11.1)
[2020-03-06 01:09] LABS: BUN/Creatinine Ratio 23 (6-26); Blood Urea Nitrogen 21 mg/dL (8-23); Calcium 9.5 mg/dL (8.6-10.3); Carbon Dioxide 25 mEq/L (23-29); Chloride 106 mEq/L (98-107); Glucose 91 mg/dL (70-105); Osmolality,Calculated 293 (280-300); Sodium 140 mEq/L (136-145); eGFR For African Americans > 60 (> 60); eGFR For Non-African Americans 58 (> 60)
[2020-03-06] MEDS: *HR* Labetalol 20 MG/4 ML SYRINGE IVP PRN (02:18)
[2020-03-06] MEDS: *HR* OxyCODONE/APAP 10/325 TABLET PO PRN ×3 (02:18→17:42)
[2020-03-06] MEDS: *HR* Heparin 5,000 UNIT/ML VIAL SQ SCH ×2 (04:19→17:37)
[2020-03-06] MEDS ORDERED: *HR* Promethazine 25 MG/ML VIAL IVP PRN (08:11)
[2020-03-06] MEDS ORDERED: *HR* HYDROmorphone (PF) 1 MG/ML SYRINGE IVP PRN (08:11)
[2020-03-06] MEDS ORDERED: *HR* Labetalol 20 MG/4 ML SYRINGE IVP PRN (08:11)
[2020-03-06] MEDS ORDERED: *HR* OxyCODONE Immed Rel 5 MG TABLET PO PRN (08:11)
[2020-03-06] MEDS: lisinopriL 20 MG TABLET PO SCH (08:52)
[2020-03-06] MEDS ORDERED: Isovue-300 50ML VIAL ONE (12:53)
[2020-03-06] MEDS ORDERED: *HR* Phenylephrine 10 MG/ML VIAL ONE (13:06)
[2020-03-06] MEDS ORDERED: *HR* Succinylcholine 200 MG/10 ML VIAL IVP ONE (13:06)
[2020-03-06] MEDS ORDERED: *HR* Propofol 200 MG/20 ML VIAL IVP ONE (13:06)
[2020-03-06] MEDS ORDERED: *HR* FentaNYL (PF) 100 MCG/2 ML VIAL ONE (13:06)
[2020-03-06] MEDS ORDERED: Dexamethasone 4 MG/ML VIAL ONE (13:06)
[2020-03-06] MEDS ORDERED: Lidocaine HCL 4 ML Topical Solution (Laryng-O-Jet Kit Sterile Pak) TP ONE (13:06)
[2020-03-06] MEDS ORDERED: Ondansetron 4 MG/2 ML VIAL ONE (13:06)
[2020-03-06] MEDS ORDERED: Lidocaine -MPF 2% 2 ML VIAL ONE (13:06)
[2020-03-06] MEDS ORDERED: CeFAZolin Syr 2,000MG/20 ML 2,000 MG/20 ML SYRINGE IVPB ONE (13:46)
[2020-03-06] MEDS ORDERED: Metoprolol XL (24 HR) Succ 25 MG TAB.ER.24H PO SCH (14:45)
[2020-03-06] MEDS: CeFAZolin 2 GM/120 ML BAG IVPB SCH (21:58)
[2020-03-06] MEDS: Chloraseptic Spray 177 ML BOTTLE MM PRN (21:58)
[2020-03-07] MEDS: CeFAZolin 2 GM/120 ML BAG IVPB SCH (05:52)
[2020-03-07 07:41] LABS: Basophils % 0.2 %; Hematocrit 44.8 % (35.3-44.9); Hemoglobin 14.8 g/dL (11.5-15.4); Immature Granulocytes % 0.5 % (0-4); Lymphocytes # 1.3 K/mcL (0.6-4.6); Lymphocytes % 15.1 %; Mean Corpuscular Hemoglobin 31.7 pg (28.0-33.3); Mean Corpuscular Volume 95.9 fL (83.0-100.0); Monocytes # 0.6 K/mcL (0.0-1.3); Neutrophils # 6.7 K/mcL (1.6-8.9); Platelet Count 208 K/mcL (140-400); Red Blood Count 4.67 M/mcL (3.82-4.97); Red Cell Distribution Width 13.6 % (11.5-14.5); Segmented Neutrophils % 77.2 %; White Blood Count 8.7 K/mcL (4.3-11.1)
[2020-03-07 07:43] LABS: BUN/Creatinine Ratio 20 (6-26); Blood Urea Nitrogen 19 mg/dL (8-23); Carbon Dioxide 28 mEq/L (23-29); Chloride 105 mEq/L (98-107); Glucose 106 mg/dL (70-105); Osmolality,Calculated 295 (280-300); Potassium 4.2 mEq/L (3.5-5.1); Sodium 141 mEq/L (136-145); eGFR For African Americans > 60 (> 60); eGFR For Non-African Americans 57 (> 60)
[2020-03-07] MEDS: *HR* OxyCODONE Immed Rel 5 MG TABLET PO PRN ×3 (10:23→19:59)
[2020-03-07] MEDS: Chloraseptic Spray 177 ML BOTTLE MM PRN (14:58)
[2020-03-07] MEDS ORDERED: rOPINIRole 0.25 MG TABLET PO ONE (17:23)
[2020-03-07] MEDS ORDERED: Melatonin 3 MG TABLET PO ONE (19:35)
[2020-03-08] MEDS ORDERED: *HR* OxyCODONE Immed Rel 5 MG TABLET PO ONE (01:14)
[2020-03-08 01:44] LABS: Alpha 2 Globulin (PEP) 0.81 g/dL (0.48-1.05); Beta Globulin (PEP) 0.89 g/dL (0.48-1.10)
[2020-03-08] MEDS ORDERED: rOPINIRole 0.25 MG TABLET PO ONE (02:27)
[2020-03-08 02:29] LABS: Basophils % 0.4 %; Eosinophils # 0.2 K/mcL (0.0-0.6); Eosinophils % 2.3 %; Hematocrit 44.3 % (35.3-44.9); Hemoglobin 13.8 g/dL (11.5-15.4); Immature Granulocytes % 0.4 % (0-4); Lymphocytes # 2.8 K/mcL (0.6-4.6); Lymphocytes % 28.6 %; Mean Corpuscular HGB Conc 31.2 g/dL (31.6-35.5); Mean Corpuscular Hemoglobin 30.6 pg (28.0-33.3); Mean Corpuscular Volume 98.2 fL (83.0-100.0); Monocytes % 10.2 %; Neutrophils # 5.7 K/mcL (1.6-8.9); Platelet Count 163 K/mcL (140-400); Red Blood Count 4.51 M/mcL (3.82-4.97); Red Cell Distribution Width 13.5 % (11.5-14.5); Segmented Neutrophils % 58.1 %; White Blood Count 9.8 K/mcL (4.3-11.1)
[2020-03-08 02:45] LABS: BUN/Creatinine Ratio 27 (6-26); Blood Urea Nitrogen 27 mg/dL (8-23); Calcium 9.1 mg/dL (8.6-10.3); Carbon Dioxide 27 mEq/L (23-29); Chloride 106 mEq/L (98-107); Glucose 94 mg/dL (70-105); Magnesium 2.1 mg/dL (1.6-2.6); Osmolality,Calculated 295 (280-300); Potassium 3.6 mEq/L (3.5-5.1); Sodium 140 mEq/L (136-145); eGFR For African Americans > 60 (> 60); eGFR For Non-African Americans 52 (> 60)
[2020-03-08 08:12] LABS: IFE Reflexed NOT DONE
[2020-03-08] MEDS: Ringers Solution, Lactated 1,000 ML IVC SCH ×2 (10:28→10:29)
[2020-03-08] MEDS: Gabapentin 100 MG CAPSULE PO SCH ×2 (17:35→20:10)
[2020-03-08] MEDS: *HR* OxyCODONE Immed Rel 5 MG TABLET PO PRN (20:10)
[2020-03-08] MEDS ORDERED: Melatonin 3 MG TABLET PO ONE (20:13)
[2020-03-09] MEDS: *HR* OxyCODONE Immed Rel 5 MG TABLET PO PRN ×3 (00:54→16:18)
[2020-03-09 01:00] LABS: Bilirubin,Urine Negative (Negative); Blood,Urine Trace-intact (Negative); Clarity,Urine Clear (Clear); Color,Urine Yellow (Yellow); Glucose,Urine (UA) Normal (Normal); Ketones,Urine Negative (Negative); Leukocyte Esterase,Urine Negative (Negative); Nitrite,Urine Negative (Negative); Protein,Urine Negative (Neg-Trace); Urobilinogen,Urine Normal (Normal)
[2020-03-09 01:02] LABS: Bacteria,Urine Few per hpf (None-Few); Hyaline Casts,Urine Few per lpf (None Seen); Mucus,Urine Few per lpf (None-Few); RBC,Urine 0-3 per hpf (0-3); Squamous Epithelial Cell,Urine Few per hpf (None-Few)
[2020-03-09 01:25] LABS: Basophils % 0.5 %; Eosinophils # 0.4 K/mcL (0.0-0.6); Eosinophils % 4.7 %; Hematocrit 43.9 % (35.3-44.9); Hemoglobin 14.2 g/dL (11.5-15.4); Immature Granulocytes % 0.5 % (0-4); Lymphocytes # 2.7 K/mcL (0.6-4.6); Lymphocytes % 32.3 %; Mean Corpuscular HGB Conc 32.3 g/dL (31.6-35.5); Mean Corpuscular Hemoglobin 30.9 pg (28.0-33.3); Mean Corpuscular Volume 95.6 fL (83.0-100.0); Mean Platelet Volume 10.7 fL (9.4-12.4); Monocytes # 0.9 K/mcL (0.0-1.3); Monocytes % 10.9 %; Neutrophils # 4.3 K/mcL (1.6-8.9); Platelet Count 206 K/mcL (140-400); Red Blood Count 4.59 M/mcL (3.82-4.97); Red Cell Distribution Width 13.3 % (11.5-14.5); Segmented Neutrophils % 51.1 %; White Blood Count 8.4 K/mcL (4.3-11.1)
[2020-03-09 01:40] LABS: BUN/Creatinine Ratio 24 (6-26); Blood Urea Nitrogen 22 mg/dL (8-23); Calcium 9.2 mg/dL (8.6-10.3); Carbon Dioxide 28 mEq/L (23-29); Chloride 105 mEq/L (98-107); Glucose 93 mg/dL (70-105); Osmolality,Calculated 293 (280-300); Sodium 140 mEq/L (136-145); eGFR For African Americans > 60 (> 60); eGFR For Non-African Americans 57 (> 60)
[2020-03-09] MEDS: Gabapentin 100 MG CAPSULE PO SCH ×3 (08:19→22:42)
[2020-03-09] MEDS ORDERED: Ondansetron 4 MG/2 ML VIAL IVP PRN (15:50)
[2020-03-09] MEDS ORDERED: Ondansetron 4 MG/2 ML VIAL IVP SCH (18:00)
[2020-03-09] MEDS: lisinopriL 10 MG TABLET PO SCH (18:28)
[2020-03-09] MEDS ORDERED: Isovue-370 500 ML BOTTLE IVP ONE (22:41)
[2020-03-10] MEDS: *HR* OxyCODONE Immed Rel 5 MG TABLET PO PRN ×3 (00:42→13:12)
[2020-03-10] MEDS: cefTRIAXone 2,000 MG in Water for inj. (sterile) 20 ML IVP SCH (00:52)
[2020-03-10 03:30] LABS: BUN/Creatinine Ratio 20 (6-26); Blood Urea Nitrogen 20 mg/dL (8-23); Calcium 9.4 mg/dL (8.6-10.3); Carbon Dioxide 27 mEq/L (23-29); Chloride 103 mEq/L (98-107); Glucose 123 mg/dL (70-105); Osmolality,Calculated 288 (280-300); Potassium 3.7 mEq/L (3.5-5.1); Sodium 137 mEq/L (136-145); eGFR For African Americans > 60 (> 60); eGFR For Non-African Americans 53 (> 60)
[2020-03-10 03:49] LABS: Basophils % 0.3 %; Eosinophils # 0.1 K/mcL (0.0-0.6); Eosinophils % 0.9 %; Hematocrit 52.1 % (35.3-44.9); Hemoglobin 17.1 g/dL (11.5-15.4); Immature Granulocytes % 0.6 % (0-4); Lymphocytes # 1.6 K/mcL (0.6-4.6); Lymphocytes % 11.7 %; Mean Corpuscular HGB Conc 32.8 g/dL (31.6-35.5); Mean Corpuscular Hemoglobin 30.6 pg (28.0-33.3); Mean Corpuscular Volume 93.2 fL (83.0-100.0); Mean Platelet Volume 10.7 fL (9.4-12.4); Monocytes # 1.2 K/mcL (0.0-1.3); Monocytes % 8.3 %; Neutrophils # 10.9 K/mcL (1.6-8.9); Platelet Count 201 K/mcL (140-400); Red Blood Count 5.59 M/mcL (3.82-4.97); Red Cell Distribution Width 13.2 % (11.5-14.5); Segmented Neutrophils % 78.2 %; White Blood Count 13.9 K/mcL (4.3-11.1)
[2020-03-10] MEDS ORDERED: Acetaminophen IV 1,000 MG/100 ML INFUS..BTL IVPB ONE (05:40)
[2020-03-10] MEDS: Gabapentin 100 MG CAPSULE PO SCH ×3 (07:26→21:07)
[2020-03-10] MEDS: lisinopriL 10 MG TABLET PO SCH (07:26)
[2020-03-10] MEDS: MetroNIDAZOLE 500 MG/100 ML 500 MG/100 ML BAG IVPB SCH ×2 (07:27→16:12)
[2020-03-10 08:45] LABS: Hematocrit 52.1 % (35.3-44.9); Hemoglobin 17.2 g/dL (11.5-15.4)
[2020-03-10 11:02] LABS: Hematocrit 51.8 % (35.3-44.9); Hemoglobin 17.1 g/dL (11.5-15.4)
[2020-03-11] MEDS: cefTRIAXone 2,000 MG in Water for inj. (sterile) 20 ML IVP SCH (00:28)
[2020-03-11] MEDS: MetroNIDAZOLE 500 MG/100 ML 500 MG/100 ML BAG IVPB SCH ×3 (00:33→16:34)
[2020-03-11] MEDS: *HR* OxyCODONE Immed Rel 5 MG TABLET PO PRN ×3 (03:50→16:33)
[2020-03-11 06:06] LABS: Basophils % 0.2 %; Eosinophils # 0.2 K/mcL (0.0-0.6); Eosinophils % 1.1 %; Hematocrit 49.5 % (35.3-44.9); Hemoglobin 16.3 g/dL (11.5-15.4); Immature Granulocytes % 0.5 % (0-4); Lymphocytes % 18.2 %; Mean Corpuscular HGB Conc 32.9 g/dL (31.6-35.5); Mean Corpuscular Hemoglobin 31.7 pg (28.0-33.3); Mean Corpuscular Volume 96.3 fL (83.0-100.0); Mean Platelet Volume 10.3 fL (9.4-12.4); Monocytes # 1.5 K/mcL (0.0-1.3); Monocytes % 9.5 %; Neutrophils # 11.5 K/mcL (1.6-8.9); Platelet Count 229 K/mcL (140-400); Red Blood Count 5.14 M/mcL (3.82-4.97); Red Cell Distribution Width 13.4 % (11.5-14.5); Segmented Neutrophils % 70.5 %; White Blood Count 16.2 K/mcL (4.3-11.1)
[2020-03-11] MEDS ORDERED: Ringers Solution, Lactated 1,000 ML IVC ONE (07:41)
[2020-03-11] MEDS: lisinopriL 10 MG TABLET PO SCH (08:07)
[2020-03-11] MEDS: Gabapentin 100 MG CAPSULE PO SCH ×3 (08:07→21:03)
[2020-03-11] MEDS ORDERED: Ringers Solution, Lactated 1,000 ML ONE (13:24)
[2020-03-11] MEDS: *HR* Heparin 5,000 UNIT/ML VIAL SQ SCH (22:00)
[2020-03-11 23:39] LABS: Bilirubin,Urine Negative (Negative); Blood,Urine Trace (Negative); Clarity,Urine Clear (Clear); Color,Urine Light-Yellow (Yellow); Glucose,Urine (UA) Normal (Normal); Ketones,Urine Negative (Negative); Leukocyte Esterase,Urine Small (Negative); Nitrite,Urine Negative (Negative); Protein,Urine Negative (Neg-Trace); RBC,Urine 0-3 per hpf (0-3); Specific Gravity,Urine 1.015 (1.010-1.025); Squamous Epithelial Cell,Urine Few per hpf (None-Few); Urobilinogen,Urine Normal (Normal)
[2020-03-12] MEDS: cefTRIAXone 2,000 MG in Water for inj. (sterile) 20 ML IVP SCH (02:01)
[2020-03-12] MEDS: MetroNIDAZOLE 500 MG/100 ML 500 MG/100 ML BAG IVPB SCH ×4 (02:01→23:49)
[2020-03-12] MEDS: Ringers Solution, Lactated 1,000 ML IVC SCH ×2 (02:01→17:53)
[2020-03-12] MEDS: *HR* OxyCODONE Immed Rel 5 MG TABLET PO PRN ×4 (02:46→21:13)
[2020-03-12] MEDS: *HR* Heparin 5,000 UNIT/ML VIAL SQ SCH ×2 (05:24→17:53)
[2020-03-12 06:05] LABS: Basophils # 0.1 K/mcL (0.0-0.2); Basophils % 0.4 %; Eosinophils # 0.4 K/mcL (0.0-0.6); Eosinophils % 3.1 %; Hematocrit 41.4 % (35.3-44.9); Immature Granulocytes % 0.7 % (0-4); Lymphocytes # 2.1 K/mcL (0.6-4.6); Lymphocytes % 17.5 %; Mean Corpuscular HGB Conc 32.9 g/dL (31.6-35.5); Mean Corpuscular Hemoglobin 31.9 pg (28.0-33.3); Monocytes # 1.2 K/mcL (0.0-1.3); Neutrophils # 8.3 K/mcL (1.6-8.9); Platelet Count 195 K/mcL (140-400); Red Blood Count 4.27 M/mcL (3.82-4.97); Red Cell Distribution Width 13.4 % (11.5-14.5); Segmented Neutrophils % 68.3 %; White Blood Count 12.1 K/mcL (4.3-11.1)
[2020-03-12 06:06] LABS: Hemoglobin 13.6 g/dL (11.5-15.4)
[2020-03-12 07:21] LABS: BUN/Creatinine Ratio 19 (6-26); Blood Urea Nitrogen 16 mg/dL (8-23); Calcium 8.6 mg/dL (8.6-10.3); Carbon Dioxide 24 mEq/L (23-29); Chloride 108 mEq/L (98-107); Glucose 105 mg/dL (70-105); Osmolality,Calculated 292 (280-300); Potassium 3.6 mEq/L (3.5-5.1); Sodium 140 mEq/L (136-145); eGFR For African Americans > 60 (> 60); eGFR For Non-African Americans > 60 (> 60)
[2020-03-12] MEDS: Gabapentin 100 MG CAPSULE PO SCH ×3 (09:37→21:13)
[2020-03-12] MEDS ORDERED: rOPINIRole 0.25 MG TABLET PO STA (12:17)
[2020-03-13] MEDS: cefTRIAXone 2,000 MG in Water for inj. (sterile) 20 ML IVP SCH (01:22)
[2020-03-13 02:48] LABS: Basophils # 0.1 K/mcL (0.0-0.2); Basophils % 0.6 %; Eosinophils # 0.6 K/mcL (0.0-0.6); Eosinophils % 5.7 %; Hematocrit 44.8 % (35.3-44.9); Hemoglobin 14.3 g/dL (11.5-15.4); Immature Granulocytes % 0.8 % (0-4); Lymphocytes # 2.4 K/mcL (0.6-4.6); Lymphocytes % 24.4 %; Mean Corpuscular HGB Conc 31.9 g/dL (31.6-35.5); Mean Corpuscular Hemoglobin 30.6 pg (28.0-33.3); Mean Corpuscular Volume 95.9 fL (83.0-100.0); Mean Platelet Volume 10.7 fL (9.4-12.4); Monocytes # 1.1 K/mcL (0.0-1.3); Neutrophils # 5.6 K/mcL (1.6-8.9); Platelet Count 197 K/mcL (140-400); Red Blood Count 4.67 M/mcL (3.82-4.97); Red Cell Distribution Width 13.4 % (11.5-14.5); Segmented Neutrophils % 57.5 %; White Blood Count 9.7 K/mcL (4.3-11.1)
[2020-03-13] MEDS: *HR* Heparin 5,000 UNIT/ML VIAL SQ SCH ×2 (05:36→16:41)
[2020-03-13] MEDS: *HR* OxyCODONE Immed Rel 5 MG TABLET PO PRN ×2 (08:37→14:28)
[2020-03-13] MEDS: Gabapentin 100 MG CAPSULE PO SCH ×3 (08:38→20:47)
[2020-03-13] MEDS: MetroNIDAZOLE 500 MG/100 ML 500 MG/100 ML BAG IVPB SCH ×2 (08:38→16:41)
[2020-03-13] MEDS: lisinopriL 10 MG TABLET PO SCH (08:51)
[2020-03-13] MEDS: Ringers Solution, Lactated 1,000 ML IVC SCH ×2 (10:08→22:53)
[2020-03-13] MEDS: rOPINIRole 1 MG TABLET PO SCH ×3 (10:08→20:46)
[2020-03-13] MEDS ORDERED: hydrALAZINE 10 MG TABLET PO PRN (20:16)
[2020-03-14] MEDS: cefTRIAXone 2,000 MG in Water for inj. (sterile) 20 ML IVP SCH (00:16)
[2020-03-14] MEDS: MetroNIDAZOLE 500 MG/100 ML 500 MG/100 ML BAG IVPB SCH ×3 (00:21→14:55)
[2020-03-14] MEDS: *HR* OxyCODONE Immed Rel 5 MG TABLET PO PRN (01:01)
[2020-03-14] MEDS ORDERED: Ondansetron 4 MG/2 ML VIAL IVP PRN (01:09)
[2020-03-14] MEDS ORDERED: *HR* OxyCODONE Oral Soln 5 MG/5 ML UD.LIQ PO PRN (03:05)
[2020-03-14] MEDS: *HR* Heparin 5,000 UNIT/ML VIAL SQ SCH ×2 (06:41→16:55)
[2020-03-14] MEDS: rOPINIRole 1 MG TABLET PO SCH ×3 (07:58→20:35)
[2020-03-14] MEDS: Gabapentin 100 MG CAPSULE PO SCH ×3 (08:01→20:35)
[2020-03-14] MEDS: lisinopriL 10 MG TABLET PO SCH (08:01)
[2020-03-14 11:31] LABS: Basophils # 0.1 K/mcL (0.0-0.2); Basophils % 0.5 %; Eosinophils # 0.4 K/mcL (0.0-0.6); Eosinophils % 3.4 %; Hematocrit 40.5 % (35.3-44.9); Hemoglobin 13.6 g/dL (11.5-15.4); Immature Granulocytes % 0.4 % (0-4); Lymphocytes # 2.4 K/mcL (0.6-4.6); Lymphocytes % 21.5 %; Mean Corpuscular HGB Conc 33.6 g/dL (31.6-35.5); Mean Corpuscular Volume 95.3 fL (83.0-100.0); Mean Platelet Volume 10.1 fL (9.4-12.4); Monocytes # 1.3 K/mcL (0.0-1.3); Monocytes % 11.5 %; Neutrophils # 6.9 K/mcL (1.6-8.9); Platelet Count 218 K/mcL (140-400); Red Blood Count 4.25 M/mcL (3.82-4.97); Red Cell Distribution Width 13.2 % (11.5-14.5); Segmented Neutrophils % 62.7 %
[2020-03-14] MEDS ORDERED: Ringers Solution, Lactated 1,000 ML ONE (14:48)
[2020-03-14] MEDS: Ringers Solution, Lactated 1,000 ML IVC SCH (14:51)
[2020-03-14] MEDS: *HR* OxyCODONE/APAP 5/325 TABLET PO PRN (16:55)
[2020-03-15] MEDS: cefTRIAXone 2,000 MG in Water for inj. (sterile) 20 ML IVP SCH (01:25)
[2020-03-15] MEDS: MetroNIDAZOLE 500 MG/100 ML 500 MG/100 ML BAG IVPB SCH ×2 (01:26→07:55)
[2020-03-15 03:57] LABS: Basophils % 0.4 %; Eosinophils # 0.4 K/mcL (0.0-0.6); Eosinophils % 5.3 %; Hemoglobin 12.8 g/dL (11.5-15.4); Immature Granulocytes % 0.4 % (0-4); Lymphocytes # 2.2 K/mcL (0.6-4.6); Lymphocytes % 26.6 %; Mean Corpuscular Hemoglobin 30.8 pg (28.0-33.3); Mean Corpuscular Volume 96.4 fL (83.0-100.0); Mean Platelet Volume 10.6 fL (9.4-12.4); Monocytes # 0.9 K/mcL (0.0-1.3); Monocytes % 11.2 %; Neutrophils # 4.6 K/mcL (1.6-8.9); Platelet Count 212 K/mcL (140-400); Red Blood Count 4.15 M/mcL (3.82-4.97); Red Cell Distribution Width 13.5 % (11.5-14.5); Segmented Neutrophils % 56.1 %; White Blood Count 8.2 K/mcL (4.3-11.1)
[2020-03-15] MEDS: *HR* Heparin 5,000 UNIT/ML VIAL SQ SCH ×2 (06:03→17:46)
[2020-03-15] MEDS: Ringers Solution, Lactated 1,000 ML IVC SCH (06:15)
[2020-03-15] MEDS: lisinopriL 10 MG TABLET PO SCH (07:54)
[2020-03-15] MEDS: Gabapentin 100 MG CAPSULE PO SCH ×3 (07:55→20:24)
[2020-03-15] MEDS: *HR* OxyCODONE/APAP 5/325 TABLET PO PRN ×2 (08:08→16:09)
[2020-03-15] MEDS: metroNIDAZOLE 500 MG TABLET PO SCH ×2 (15:04→20:25)
[2020-03-15] MEDS ORDERED: Sennosides/Docusate Sodium TABLET PO PRN (16:24)
[2020-03-15] MEDS: *HR* OxyCODONE/APAP 10/325 TABLET PO PRN (18:31)
[2020-03-15] MEDS ORDERED: rOPINIRole 0.25 MG TABLET PO SCH (21:00)
[2020-03-16 01:28] LABS: Basophils % 0.4 %; Eosinophils # 0.3 K/mcL (0.0-0.6); Eosinophils % 3.8 %; Hematocrit 44.3 % (35.3-44.9); Immature Granulocytes % 0.9 % (0-4); Lymphocytes # 1.5 K/mcL (0.6-4.6); Lymphocytes % 18.4 %; Mean Corpuscular Hemoglobin 31.9 pg (28.0-33.3); Mean Corpuscular Volume 96.9 fL (83.0-100.0); Mean Platelet Volume 10.6 fL (9.4-12.4); Monocytes # 0.9 K/mcL (0.0-1.3); Monocytes % 10.5 %; Neutrophils # 5.4 K/mcL (1.6-8.9); Platelet Count 230 K/mcL (140-400); Red Blood Count 4.57 M/mcL (3.82-4.97); Red Cell Distribution Width 13.2 % (11.5-14.5); White Blood Count 8.1 K/mcL (4.3-11.1)
[2020-03-16 01:31] LABS: Hemoglobin 14.6 g/dL (11.5-15.4)
[2020-03-16] MEDS: hydrALAZINE 10 MG TABLET PO PRN ×2 (04:41→11:58)
[2020-03-16] MEDS: *HR* Heparin 5,000 UNIT/ML VIAL SQ SCH (04:42)
[2020-03-16] MEDS: *HR* OxyCODONE/APAP 10/325 TABLET PO PRN (06:25)
[2020-03-16] MEDS: lisinopriL 10 MG TABLET PO SCH (08:30)
[2020-03-16] MEDS: Gabapentin 100 MG CAPSULE PO SCH (08:30)
[2020-03-16] MEDS: metroNIDAZOLE 500 MG TABLET PO SCH (08:31)
[2020-03-16] MEDS ORDERED: Cefdinir 300 MG CAPSULE PO SCH (09:00)
[2020-03-16 11:36] VITALS: BP 185/74
[2020-03-16] MEDS ORDERED: FLU Vac QV 20-21 (6Month+)/PF 0.5 ML SYRINGE IM ONE (12:30)
[2020-03-16 13:07] LABS: % Iron Saturation 30 % (15-50); Iron 58 mcg/dL (50-170); Transferrin 140 mg/dL (203-362)
[2020-03-16 13:26] LABS: Ferritin 306 ng/mL (10-120)
[2020-03-16] MEDS ORDERED: rOPINIRole 0.25 MG TABLET PO SCH (21:00)
[2020-03-17] MEDS ORDERED: lisinopriL 20 MG TABLET PO SCH (09:00)
== END 2020-03-16 14:50 | DRG 477 ==
LOC: EMEROOARM 20:45 → 3NENU 20:45 → SUATTDRO 23:46 → 3NENU 03-01 00:43 → SUATTDRO 03-04 14:33
PROVIDERS: ADMIT Internal Medicine; ATTEND Internal Medicine